=== PATIENT | male | born 1930 | race Caucasian/White ===

== ENCOUNTER → 2016-05-14 | Outpatient (REF) | payer MEDICARE, OTHER ==
[~2016-05-14] MED LIST: AMLO5TAB2 PO; ASPI1TAB PO; ATIV1TAB10 PO; BACITAB3 PO; BENA40TA2 PO; CEFU500T2 PO; CLEO300C2 PO; CLOB0.0548 TOP; CYAN1000VL IM; ESCI20TA PO; FENO145T PO; ISOS30TAB PO; KEFL500C7 PO; LEVA250T PO; LEVO25TA5 PO; LEVO50TA5 PO; LEXA1TAB2 PO; LOSA50TA20 PO; MILKSUS PO; MULTCAP PO; OCUVTAB4 PO; OXYC1SOL PO; OXYC20TA2 PO; PRED20TA PO; RISATAB3 PO; SENN8.6T10 PO; SIMV40TA2 PO; VITA100037 PO; VITA100T20 PO; VITA500055 PO; VITMTA PO; XANA0.5T PO; cefuroxime OR; clobetasol TOP
== END ==
LOC: M LAB REF 16:21
PROVIDERS: ATTEND Nurse Practitioner Adult Health
DX: Z11.1 Encounter for screening for respiratory tuberculosis (principal)

== ENCOUNTER 2016-07-14 12:45 | Observation (INO) | payer MEDICARE, OTHER ==
[~2016-07-14] VITALS: Ht 172.7 cm; Wt 86.8 kg
[~2016-07-14 12:45] MED LIST changes: +BACITAB PO; -BACITAB3 PO; -BENA40TA2 PO; +BENA40TA7 PO; +KEFL500C17 PO; -KEFL500C7 PO; +LEVA1TAB PO; -LEVA250T PO; -OXYC1SOL PO; +OXYC1SOL3 PO; +SENN1TAB10 PO; -SENN8.6T10 PO; -VITA100037 PO; +VITA100067 PO
[2016-07-14 14:11] LABS: BASO % 0.3 % (0.0-1.0); EOS # 0.1 K/mm3 (0.0-0.50); EOS % 1.4 % (0.0-3.0); LARGE UNSTAINED CELL # 0.1 K/mm3 (0.0-0.4); LARGE UNSTAINED CELL % 1.4 % (0.0-4.0); LYMPH # 0.8 K/mm3 (1.5-4.5); LYMPH % 8.8 % (24.0-44.0); MEAN CORPUSCULAR HEMOGLOBIN 30.8 pg (27.0-33.0); MEAN CORPUSCULAR HGB CONC 34.8 g/dl (32.0-36.5); MEAN CORPUSCULAR VOLUME 88.5 fl (80.0-96.0); MONO # 0.6 K/mm3 (0.0-0.8); MONO % 7.5 % (0.0-5.0); NEUTROPHILS % 80.7 % (36.0-66.0); PLATELET COUNT, AUTOMATED 204 k/mm3 (150-450); RED CELL DISTRIBUTION WIDTH 14.1 % (11.5-14.5); WHITE BLOOD COUNT 7.5 K/mm3 (4.0-10.0)
[2016-07-14 14:34] LABS: CALCIUM LEVEL 8.5 MG/DL (8.8-10.2); CREATININE FOR GFR 1.44 MG/DL (0.70-1.30); FREE T4 0.93 NG/DL (0.76-1.46); GLOMERULAR FILTRATION RATE 49.4 (>35); MAGNESIUM LEVEL 2.2 MG/DL (1.8-2.4); POTASSIUM SERUM 4.2 MEQ/L (3.5-5.1)
--- NOTE | 2016-07-14 15:01 | REP ---
CT HEAD WITHOUT CONTRAST: HISTORY: Trauma. COMPARISON: 01/30/2015. Areas of decreased attentuation are present in the periventricular white matter. This represents small vessel ischemic disease. There is no intraparenchymal hemorrhage, mass, or midline shift. The ventricular system and cortical sulci are dilated consistent with mild volume loss. There is no extracerebral collection. There is no fracture. The visualized sinuses are clear. IMPRESSION: 1. Small vessel ischemic disease. 2. Mild volume loss. Signed by Gal Munoz MD 07/14/2016 03:03 P
--- NOTE | 2016-07-14 15:13 | ECGEPIP ---
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
[2016-07-14] MEDS ORDERED: ESCI10TA2 PO (15:17)
[2016-07-14] MEDS ORDERED: ISOS30TAB PO (15:17)
[2016-07-14] MEDS ORDERED: ACET1TAB17 PO (15:17)
[2016-07-14] MEDS ORDERED: SIMV20TA2 PO (15:17)
[2016-07-14] MEDS ORDERED: FENO1TAB PO (15:17)
[2016-07-14] MEDS ORDERED: SENN1TAB10 PO (15:17)
[2016-07-14] MEDS ORDERED: AMLO5TAB2 PO (15:17)
[2016-07-14] MEDS ORDERED: ACETAMINOPHEN TAB 650MG DOSE (2X325MG) PO PRN (16:30)
[2016-07-14] MEDS ORDERED: ALPRAZolam 0.5 MG TAB PO PRN (16:30)
[2016-07-14] MEDS ORDERED: SENNA 8.6 MG TAB (SENOKOT) PO PRN (16:30)
[2016-07-14 17:27] LABS: PERCENT SATURATION 12.1 % (19.7-37.4)
--- NOTE | 2016-07-14 18:20 | REPUSA ---
Clinicaly History: syncope, hypertension. Findings: Real-Time carotid duplex ultrasound with color Doppler flow was performed. Normal color Dop pler flow and arterial waveforms are noted. Moderate diffuse atherosclerotic plaque is seen in the re gion of the carotid bulbs bilaterally. No elevated velocities are seen however. Antegrade blood flow is seen in the vertebral arteries bilaterally. There is no evidence of subclavian steal. The right IC A/CCA ratio measures 1.12, and the left measures 1.37. Incidental note is made of nonocclusive thromb us in the jugular veins bilaterally. Impression: 1. No evidence of hemodynamically significant stenosis in the carotid arterial system bilaterally. Mo derate diffuse atherosclerotic plaque is seen in the region of the carotid bulbs bilaterally. 2. Nonocclusive thrombus in the jugular veins bilaterally is noted.
[2016-07-14] MEDS: NS 1,000 ML IV SCH (19:22)
[2016-07-14 20:00] VITALS: BP 170/75
[2016-07-14] MEDS ORDERED: ALPRAZolam 0.25 MG TAB PO PRN (20:33)
[2016-07-14] MEDS: SIMVASTATIN 20 MG TAB PO SCH (21:08)
[2016-07-14] MEDS: LACTOBACILLUS ACIDOPHILUS CAP (BACID) PO SCH (21:08)
[2016-07-14] MEDS: amLODIPine 5 MG TAB PO SCH (21:09)
[2016-07-14 21:21] VITALS: BP 191/80
--- NOTE | 2016-07-14 21:25 | HPE ---
DATE OF ADMISSION: 07/14/2016 PRIMARY CARE PHYSICIAN: Magaly Grubbs DO ONCOLOGIST: Srinivasan Ozuna MD GENERAL SURGEON: Erlin Hernandez Jr., MD STATUS CODE: DO NOT RESUSCITATE/DO NOT RESUSCITATE. CHIEF COMPLAINT: Syncope. HISTORY OF PRESENT ILLNESS: Mr. Vieyra is an 85-year-old male who was transferred to the emergency room (ER) from [facility] due to an episode of syncope this morning. Patient expressed that this morning after he woke up he went to the bathroom and he had one episode of bowel movement and after the bowel movement, he felt lightheaded and dizzy and then had one episode of syncope. Patient does not remember anything during the episode, however after gaining consciousness patient was alert and he remembers that he crawled toward the bed and then toward his chair. Patient denies tachycardia, palpitation, racing or skipping heartbeat before or during the episode. Patient denies seizure-type activity or losing bowel or bladder control before, during, or after the episode. However, after the episode patient expressed that he remembers that he had upper extremity shaking which according to her daughter he has it secondary to being scared. According to her , patient similar to this episode of syncope every 6 months for the past two years and the last one was in May, when patient was visiting his other daughter in [place], where after taking a shower, patient had a bowel movement and after that patient had syncope. These episodes usually happen in the morning and daughter believes that this is related to his blood pressure medications. Patient also denies nausea, vomiting, diarrhea however sometimes he is constipated. Patient also denies fever, chills , or night sweats. ALLERGIES: No known drug allergies. PAST MEDICAL HISTORY: 1. Colon cancer. 2. Hypothyroidism. 3. Hypercholesterolemia. 4. Coronary artery disease. 5. Orbital fracture. 6. Macular degeneration. 7. Neurogenic bladder, self-catheterization. 8. Sleep apnea. Patient does not want continuous positive airway pressure (CPAP). PAST SURGICAL HISTORY: 1. Coronary artery bypass graft (CABG). 2. Bowel resection. SOCIAL HISTORY: Patient smoked about half a pack a day for 25 years, however patient stopped smoking at age 40. Patient drinks about two beers every day in the evening. Patient denies illicit drug use. Patient has two daughters who are healthy. Patient has no pets. 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 Patient lives at [facility]. FAMILY HISTORY: Patient has two daughters who are healthy. Patient had five brothers, four due to heart diseases. Patient has two sisters, one has breast cancer. Patient's father due to heart attack at age 50. Patient's mother due to diabetes at age 60. REVIEW OF SYSTEMS: GENERAL: Patient denies fever, chills, night sweats, weight loss, weight gain. HEENT: Patient expressed that he had some lightheadedness before episode of syncope, however patient denies headache, acute vision or hearing changes. Patient also denies problem with chewing food or sinusitis. NECK: Patient denies lumps, bumps, or decreased range of motion of his neck. HEART: Patient denies palpitations, racing or skipping heartbeat or chest pain. LUNGS: Patient denies shortness of breath or coughing. ABDOMEN: Patient denies abdominal pain, nausea, vomiting, diarrhea, constipation, melena, hematochezia, or hemoptysis. NEUROLOGIC: Patient denies history of transient ischemic attack (TIA), seizure, or seizure-type activities. PHYSICAL EXAMINATION: VITAL SIGNS: Temperature 96.7, pulse 60, respiratory rate 20, blood pressure 173/83, pulse oximetry 95% on room air. GENERAL APPEARANCE: Patient was lying in bed, in no acute distress. Patient was awake, alert, and oriented to time, place, and person. HEENT: Normocephalic, atraumatic. Pupils are equal and reactive to light. Oral mucous is moist. NECK: Soft, supple. No lymphadenopathy. No thyromegaly. No jugular venous distention (JVD). HEART: Regular rate and rhythm, normal S1, S2. ABDOMEN: Soft, nontender. Positive bowel sounds in all quadrants. Patient has a hernia in the surgical site in the mid abdomen area, which was retractable. LUNGS: Clear breath sounds bilaterally, good air movement. EXTREMITIES: No lower extremity edema. +2 pulses in both lower extremities. No cyanosis in lower extremities. Patient has normal sensation in both upper and lower extremities. Patient has normal range of motion in both upper and lower extremities. NEUROLOGIC: Cranial nerves II-XII intact. No focal deficiencies. LABORATORY DATA: White blood cells 7.5, red blood cells 4.43, hemoglobin 13.6, hematocrit 39.2, MCV 88.5, MCH 30.8, MCHC 34.8, RDW 14.1, platelet count 204, neutrophil percentage 80.7, lymphocyte percentage 8.8, monocyte percentage 7.5, eosinophil percentage 1.4, basophil percentage 0.3, leukocyte percentage 1.4. Sodium 139, potassium 4.2, chloride 104, carbon dioxide 25, anion gap 10, BUN 26 , creatinine 1.44, glomerular filtration rate 49.4, fasting glucose 101, calcium 8.5, magnesium 2.2, total creatine kinase 89, CK-MB 1.2, CK-MB relative index 1.34, troponin less than 0.02, TSH 3.6, free T4 0.93. CT of the head showed small vessel ischemic disease with mild volume loss. ASSESSMENT AND PLAN: 1. Syncope. This is possibly caused by vasovagal secondary to Valsalva (bowel movement) vs medications and dehydration. Based on physical examination, patient is dehydrated. At this time I have started patient on IV fluids. Patient's CT of the head did not show any acute findings. I have ordered orthostatic vital and the result is pending at this time and will repeated every 8 hours. Also we have ordered echocardiogram and carotid ultrasound is pending at this time. Patient does not require to have MRI/MRA at this time. 2. Anemia. This is a chronic issue, however there is no new documentation regarding iron studies, therefore I have ordered iron studies as well as occult blood test and the result is pending at this time. 3. Acute renal failure. This is possibly secondary to dehydration. I have started patient on IV fluids. Also patient was on Cozaar 50 mg by mouth daily, however I have stopped this medication due to acute renal failure. We will continue to monitor renal function. 4. Colon cancer. This is a chronic issue. At this time patient is stable. 5. Hypothyroidism. Patient is on Synthroid 0.05 mg by mouth every morning. 6. Hypercholesterolemia. Will continue patient on Zocor 20 mg by mouth nightly. 7. Coronary artery disease. Patient is on aspirin 81 mg by mouth daily as well as Zocor. The patient is also on isosorbide dinitrate. 8. 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 9. Sleep apnea. Patient has been diagnosed with sleep apnea, however patient refuses continuous positive airway pressure (CPAP). 10. Neurogenic bladder. This is a chronic issue. Patient is using straight catheterization. 11. Macular degeneration. This is a chronic issue. 12. Depression. Patient is on Lexapro 10 mg by mouth daily. 13. Hypertension. At home patient is on Norvasc. At this time we will continue patient on Norvasc and isosorbide. Patient at home is on Cozaar, however I have stopped Cozaar due to acute renal failure. 14. Deep venous thrombosis (DVT) prophylaxis. Patient is on Lovenox 30 mg by mouth daily. My preceptor for this patient encounter was Dr. Annabelle Kaufman. The preceptor was physically present in the building during the encounter and was fully available. As needed, all aspects of the patient interview, examination, medical decision making process, and medical care plan development were reviewed and approved by the preceptor. The preceptor is aware and concurs with the plan as stated in the body of this note and will attest to such by his/her cosignature. AISSATOU
[2016-07-14 21:30] VITALS: BP 184/82
[2016-07-14 22:25] VITALS: BP 168/78
[2016-07-15] VITALS (8 sets, daily range): BP systolic 137–174; BP diastolic 65–80
[2016-07-15] MEDS: LEVOTHYROXINE 0.05 MG TAB (50 MCG) PO SCH (05:28)
[2016-07-15 05:40] LABS: BASO % 0.3 % (0.0-1.0); EOS # 0.1 K/mm3 (0.0-0.50); EOS % 1.3 % (0.0-3.0); LARGE UNSTAINED CELL # 0.1 K/mm3 (0.0-0.4); LARGE UNSTAINED CELL % 1.4 % (0.0-4.0); LYMPH % 9.5 % (24.0-44.0); MEAN CORPUSCULAR HGB CONC 33.7 g/dl (32.0-36.5); MONO # 0.5 K/mm3 (0.0-0.8); NEUTROPHILS # 7.2 K/mm3 (1.8-7.7); NEUTROPHILS % 81.6 % (36.0-66.0); PLATELET COUNT, AUTOMATED 195 k/mm3 (150-450); RED CELL DISTRIBUTION WIDTH 13.9 % (11.5-14.5); WHITE BLOOD COUNT 8.9 K/mm3 (4.0-10.0)
[2016-07-15 05:53] LABS: CALCIUM LEVEL 7.9 MG/DL (8.8-10.2); CREATININE FOR GFR 1.28 MG/DL (0.70-1.30); GLOMERULAR FILTRATION RATE 56.6 (>35); POTASSIUM SERUM 3.7 MEQ/L (3.5-5.1)
[2016-07-15] MEDS: ENOXAPARIN 30 MG/0.3 ML SYR (J1650) SC SCH (08:54)
[2016-07-15] MEDS: MULTIVITAMINS/MINERALS THERAP 1 TAB PO SCH (08:54)
[2016-07-15] MEDS: ASPIRIN 81 MG ENTERIC TAB PO SCH (08:54)
[2016-07-15] MEDS: LACTOBACILLUS ACIDOPHILUS CAP (BACID) PO SCH ×2 (08:54→20:30)
[2016-07-15] MEDS: ESCITALOPRAM OXALATE 10 MG TAB (LEXAPRO) PO SCH (08:54)
[2016-07-15] MEDS: ISOSORBIDE DIN. (ISORDIL) 30 MG TAB PO SCH (08:55)
[2016-07-15] MEDS ORDERED: LOSARTAN 50 MG TAB PO SCH (09:00)
[2016-07-15] MEDS ORDERED: MIRALAX POWDER 255 GM BTL (POLYETHYLENE GLYCOL) PO ONE (11:00)
[2016-07-15] MEDS ORDERED: CALCIUM CARBONATE 500 MG CHEW U/D PO ONE (13:30)
[2016-07-15] MEDS: NS 1,000 ML IV SCH (13:31)
--- NOTE | 2016-07-15 17:13 | IPN ---
DATE: 07/15/2016 SUBJECTIVE: Mr. Vieyra is an 85-year-old male who was seen and examined at the bedside. The patient this morning had one episode of lightheadedness and dizziness while he had a bowel movement. However, the patient did not lose his consciousness or have syncope. On telemetry no acute changes were noticed. The patient denies chest pain, orthopnea, paroxysmal nocturnal dyspnea (PND). The patient also denies nausea, vomiting or loss of consciousness. OBJECTIVE: VITAL SIGNS: Temperature 98, pulse 69, blood pressure 167/74. Pulse oximetry 95 on room air. Total intake from yesterday 200. Total output 250. GENERAL APPEARANCE: The patient was lying in bed, in no acute distress. The patient was awake, alert and oriented to time, place and person. HEENT: Normocephalic, atraumatic. Pupils are equal and reactive to light. Oral mucosa is moist. NECK: Soft, supple. No lymphadenopathy or thyromegaly. No jugular venous distention (JVD). HEART: Regular rate and rhythm. Normal S1, S2. ABDOMEN: Soft, nontender. Positive bowel sounds in all quadrants. LUNGS: Clear breath sounds bilaterally. Good air movement. EXTREMITIES: No lower extremity edema. +2 pulses in both lower extremities. The patient has normal range of motion in both upper and lower extremities. LABORATORY DATA: WBC 8.9, RBC 4.42, hemoglobin 13.2, hematocrit 39.3, MCV 39, MCH 30, MCHC 33.7, RDW 13.9, platelet count 195, neutrophil percentage 81.6, lymphocyte percentage 8.5, monocyte percentage 6, eosinophil percentage 1.3, basophil percentage 0.3, leucocyte percentage 1.4. Sodium 141, potassium 3.7, chloride 106, carbon dioxide 25. Anion gap 10, BUN 26, creatinine 1.28. Glomerular filtration rate 56.6. Fasting glucose 112. Calcium 7.9. ASSESSMENT AND PLAN: 1. Syncope. This is possibly secondary to vasovagal. We have performed orthostatic vitals, however, it was negative. The patient was on IV fluid, however, at this time I have stopped IV fluids. CT of the head did not show any new pathology. Also we have ordered echocardiogram, result is pending. However, carotid ultrasound did not show any obstruction or new pathology. At this time, the patient is stable. We will observe the patient for one more day. If the patient is asymptomatic, the patient can be discharged. 2. Asymptomatic anemia. This is a chronic issue. The patient is status post colorectal surgery due to colorectal cancer. I have ordered iron study which indicated low iron, however, the patient's daughter expressed, due to low absorption, secondary to bowel resection, they do not want any iron supplement. The patient recieving B12 shots every month. Also I have ordered occult blood tests. The results are pending at this time. 3. Acute renal failure. This is possibly secondary to dehydration. However, at this time, the patient's renal function is in normal range. At home the patient was on Cozaar, however, I have stopped this medication. I started the patient yesterday on IV fluid. However, I will hold this IV fluid at this time. 4. Colon cancer. This is a chronic issue. 5. Hypothyroidism. The patient is on 0.05 mg every morning. 6. Hypercholesterolemia. The patient is on Zocor 20 mg by mouth. 7. Coronary artery disease. The patient is on aspirin 81 mg as well as Zocor. The patient also is on isosorbide. 8. 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 9. Sleep apnea. The patient has been diagnosed with sleep apnea, however, the patient refuses continuous positive airway pressure (CPAP). 10. Neurogenic bladder. The patient using a straight catheter. 11. Macular degeneration. This is a chronic issue. 12. Depression. The patient is on Lexapro 10 mg by mouth. 13. Hypertension. The patient is on Norvasc and isosorbide. At home the patient is on Cozaar, however, I have stopped this medication due to acute renal failure. 14. Deep venous thrombosis (DVT) prophylaxis. The patient is on Lovenox. 15. Constipation. I have started the patient on bowel regimen. My preceptor for this patient encounter was Dr. Raheel Wilson. The preceptor was physically present in the building during the encounter and was fully available. As needed, all aspects of the patient interview, examination, medical decision making process, and medical care plan development were reviewed and approved by the preceptor. The preceptor is aware and concurs with the plan as stated in the body of this note and will attest to such by his/her cosignature. Attending Note: I have independently examined this patient and all aspects of the exam and treatment decisions have been discussed with the resident. A member of the hospitalist staff will continue to follow this patient through discharge. AISSATOU
[2016-07-15] MEDS: SIMVASTATIN 20 MG TAB PO SCH (20:30)
[2016-07-15] MEDS: amLODIPine 5 MG TAB PO SCH (20:31)
--- NOTE | 2016-07-15 20:46 | ECHO ---
DATE OF PROCEDURE: 07/15/2016 REFERRING PHYSICIAN: Annabelle Kaufman MD, Raheel Wilson MD INDICATION: Syncope. HEIGHT: 173 cm WEIGHT: 85 kg DIMENSIONS: IVS: 1.6 LV: 3.9 LVPW: 1.6 LA: 4.2 Aorta: 3.2 FINDINGS: The study is of fair technical quality. The patient is in sinus rhythm. Left ventricle is normal size and systolic function with estimated ejection fraction (EF) around 65-70%. Moderate left ventricular hypertrophy is present. Right ventricle is also normal size and systolic function. Left atrium is at least mildly enlarged. Right atrium was poorly seen. Aortic valve is heavily sclerotic, but there is only minimal limitation of cusp mobility. Mitral valve also exhibits mild degenerative abnormalities, but leaflet mobility is preserved. Tricuspid valve is normal. Pulmonic valve was not well seen. No pericardial effusion is noted. Inferior vena cava was not visualized. Aortic root is normal. Aortic arch and abdominal aorta were not seen. Doppler interrogation reveals no significant aortic stenosis or insufficiency. There is trace mitral insufficiency and trace tricuspid insufficiency. Calculated pulmonary artery pressure is within normal limits. Mitral inflow pattern and tissue Doppler imaging of mitral annulus reveal grade 1 diastolic dysfunction. CONCLUSIONS: 1. Study is of fair technical quality. 2. Normal left ventricle (LV) size with moderate left ventricular hypertrophy (LVH) and normal LV systolic function. Grade 1 diastolic dysfunction. 3. Significant aortic sclerosis but no stenosis. 4. Unable to estimate central venous pressure, but probably normal pulmonary artery pressure. COMMENTS: Subacute bacterial endocarditis (SBE) prophylaxis is not recommended. The study does not provide obvious explanation for syncopal event. Overall most consistent with hypertensive heart disease.
[2016-07-16 00:24] VITALS: BP 171/79
[2016-07-16 04:43] VITALS: BP 172/84
[2016-07-16] MEDS: LEVOTHYROXINE 0.05 MG TAB (50 MCG) PO SCH (05:21)
[2016-07-16 05:32] LABS: BASO % 0.3 % (0.0-1.0); EOS # 0.1 K/mm3 (0.0-0.50); EOS % 2.3 % (0.0-3.0); LARGE UNSTAINED CELL # 0.2 K/mm3 (0.0-0.4); LARGE UNSTAINED CELL % 2.9 % (0.0-4.0); LYMPH # 0.9 K/mm3 (1.5-4.5); LYMPH % 17.5 % (24.0-44.0); MEAN CORPUSCULAR HEMOGLOBIN 30.1 pg (27.0-33.0); MEAN CORPUSCULAR HGB CONC 34.1 g/dl (32.0-36.5); MEAN CORPUSCULAR VOLUME 88.4 fl (80.0-96.0); MONO # 0.4 K/mm3 (0.0-0.8); MONO % 7.5 % (0.0-5.0); NEUTROPHILS # 3.6 K/mm3 (1.8-7.7); NEUTROPHILS % 69.6 % (36.0-66.0); PLATELET COUNT, AUTOMATED 209 k/mm3 (150-450); RED CELL DISTRIBUTION WIDTH 13.6 % (11.5-14.5); WHITE BLOOD COUNT 5.2 K/mm3 (4.0-10.0)
[2016-07-16 05:46] LABS: CALCIUM LEVEL 8.6 MG/DL (8.8-10.2); CREATININE FOR GFR 1.22 MG/DL (0.70-1.30); GLOMERULAR FILTRATION RATE 59.8 (>35); POTASSIUM SERUM 3.7 MEQ/L (3.5-5.1)
[2016-07-16 08:00] VITALS: BP 140/66
[2016-07-16] MEDS: LACTOBACILLUS ACIDOPHILUS CAP (BACID) PO SCH (08:55)
[2016-07-16] MEDS: ENOXAPARIN 30 MG/0.3 ML SYR (J1650) SC SCH (08:55)
[2016-07-16 08:56] VITALS: BP 140/66
[2016-07-16] MEDS: ESCITALOPRAM OXALATE 10 MG TAB (LEXAPRO) PO SCH (08:56)
[2016-07-16] MEDS: ISOSORBIDE DIN. (ISORDIL) 30 MG TAB PO SCH (08:56)
[2016-07-16] MEDS: ASPIRIN 81 MG ENTERIC TAB PO SCH (08:56)
[2016-07-16] MEDS: MULTIVITAMINS/MINERALS THERAP 1 TAB PO SCH (08:56)
[2016-07-16] MEDS ORDERED: LOSARTAN 50 MG TAB PO SCH (09:00)
[2016-07-16] MEDS ORDERED: MIRA3350 PO ×2 (09:24→12:09)
--- NOTE | 2016-07-20 07:04 | DSES ---
DATE OF ADMISSION: 07/14/2016 DATE OF DISCHARGE: 07/16/2016 PRIMARY CARE PHYSICIAN: Magaly Jain DO GENERAL SURGEON: Erlin Hernandez Jr., MD ONCOLOGIST: Srinivasan Ozuna MD CONSULTANTS: None. PROCEDURES: None. PRIMARY DIAGNOSIS: Syncope. SECONDARY DIAGNOSES: 1. Colon cancer. 2. Hypothyroidism. 3. Hypercholesterolemia. 4. Coronary artery disease. 5. Orbital fracture. 6. Macular degeneration. 7. Neurogenic bladder. 8. Sleep apnea. 9. Anemia. 10. Depression. DISCHARGE MEDICATIONS: - MiraLAX 17 grams by mouth daily as needed constipation - acetaminophen 650 mg by mouth every 4 hours as needed pain - Xanax 0.5 mg by mouth twice a day as needed anxiety - amlodipine 5 mg by mouth every evening - aspirin 81 mg by mouth daily - vitamin D3 5000 units by mouth daily - escitalopram oxylate 10 mg by mouth daily - fenofibrate 120 mg by mouth every two days - isosorbide dinitrate 30 mg by mouth daily - Bacid two tablets by mouth twice a day - Synthroid 50 mcg by mouth every morning - losartan potassium 50 mg by mouth daily - multivitamin one tablet by mouth daily - senna one tablet by mouth daily as needed constipation - simvastatin 20 mg by mouth at bedtime HOSPITAL COURSE: Mr. Vieyra presented to emergency room of [facility]. Patient was transferred from [place] due to an episode of syncope. The patient had these episodes before for the past two years, which was possibly caused by vasovagal secondary to Valsalva secondary to bowel movement versus medication and dehydration. CT of the head did not show any new pathology. The patient was started on IV fluids. Also, we checked orthostatic vitals every 8 hours. Also we ordered an echocardiogram and carotid ultrasound. Carotid ultrasound was negative. Echocardiogram indicated normal left ventricle size with moderate left ventricle hypertrophy and grade 1 diastolic dysfunction. During the hospitalization, the patient had one episode of lightheadedness during the bowel movement and was mildly constipated. Therefore, the patient was started on MiraLAX, however the patient did not have any episodes of syncope present. The patient also has asymptomatic anemia, which is a chronic issues. The patient is status post colorectal surgery due to colorectal cancer. We have offered iron supplement since the iron study indicated low iron levels, however the patient and his daughter refused due to low absorption secondary to bowel resection. Patient is receiving B12 shots every months. At the time of discharge, the patient was medically stable and medically optimized. DISCHARGE PLACEMENT: [facility]. ACTIVITY: As tolerated by patient. FOLLOWUP: Please followup with your primary care. My preceptor for this patient encounter was Dr. Raheel Wilson. The preceptor was physically present in the building during the encounter and was fully available. As needed, all aspects of the patient interview, examination, medical decision making process, and medical care plan development were reviewed and approved by the preceptor. The preceptor is aware and concurs with the plan as stated in the body of this note and will attest to such by his/her cosignature. Attending Note: I have independently examined this patient and all aspects of the exam and treatment decisions have been discussed with the resident. A member of the hospitalist staff will continue to follow this patient through discharge. AISSATOU
[2016-07-21] MEDS ORDERED: CIPR-249 PO ×2 (02:16→05:12)
[2016-12-27] MEDS ORDERED: BUSP5TA PO (20:26)
== END 2016-07-16 12:23 ==
LOC: M ED 15:10 → M ED INP 16:17 → M PCU 21:32
PROVIDERS: ADMIT Internal Medicine Nephrology; ATTEND Hospitalist
DX: R55 Syncope and collapse (principal); Z85.038 Personal history of other malignant neoplasm of large intestine; E03.9 Hypothyroidism, unspecified; E78.00 Pure hypercholesterolemia, unspecified; I25.10 Atherosclerotic heart disease of native coronary artery without angina pectoris; Z87.81 Personal history of (healed) traumatic fracture; H35.30 Unspecified macular degeneration; N31.9 Neuromuscular dysfunction of bladder, unspecified; G47.30 Sleep apnea, unspecified; D64.9 Anemia, unspecified; F32.9 Major depressive disorder, single episode, unspecified; I67.82 Cerebral ischemia; I70.0 Atherosclerosis of aorta; K59.00 Constipation, unspecified; I10 Essential (primary) hypertension; N17.9 Acute kidney failure, unspecified; Z79.899 Other long term (current) drug therapy; Z79.82 Long term (current) use of aspirin; Z95.1 Presence of aortocoronary bypass graft; Z87.891 Personal history of nicotine dependence
CPT/HCPCS: 36415; 70450; 80048; 82550; 82553; 82728; 83550; 83735; 84439; 84443; 84484; 85025; 93005; 93041; 93306; 93880; 94760; 96360; 96361; 96372; 97161; 99285; G0378; G8978; G8979; G8980; J1650

== ENCOUNTER 2016-07-20 23:14 | Emergency (ER) | payer MEDICARE, OTHER ==
[~2016-07-20 23:14] MED LIST changes: +ACET-654 PO; -BACITAB PO; +BACITAB3 PO; +BENA40TA2 PO; -BENA40TA7 PO; +ESCI10TA2 PO; +FENO1TAB PO; -KEFL500C17 PO; +KEFL500C7 PO; -LEVA1TAB PO; +LEVA250T PO; +MIRA3350 PO; +OXYC1SOL PO; -OXYC1SOL3 PO; -SENN1TAB10 PO; +SENN8.6T10 PO; +SIMV20TA2 PO; +VITA100037 PO; -VITA100067 PO
[2016-07-20] MEDS ORDERED: COZA50TA PO (23:31)
[2016-07-20] MEDS ORDERED: ONDANSETRON 4MG/2ML VIAL (J2405) IV ONE (23:45)
[2016-07-21 00:13] LABS: BASO % 0.4 % (0.0-1.0); EOS # 0.2 K/mm3 (0.0-0.50); EOS % 3.7 % (0.0-3.0); LARGE UNSTAINED CELL # 0.1 K/mm3 (0.0-0.4); LARGE UNSTAINED CELL % 1.9 % (0.0-4.0); LYMPH # 0.9 K/mm3 (1.5-4.5); LYMPH % 16.6 % (24.0-44.0); MEAN CORPUSCULAR HGB CONC 33.8 g/dl (32.0-36.5); MEAN CORPUSCULAR VOLUME 88.8 fl (80.0-96.0); MONO # 0.5 K/mm3 (0.0-0.8); MONO % 8.3 % (0.0-5.0); NEUTROPHILS # 3.8 K/mm3 (1.8-7.7); NEUTROPHILS % 69.2 % (36.0-66.0); PLATELET COUNT, AUTOMATED 249 k/mm3 (150-450); RED CELL DISTRIBUTION WIDTH 13.4 % (11.5-14.5); WHITE BLOOD COUNT 5.5 K/mm3 (4.0-10.0)
[2016-07-21 00:45] LABS: ALBUMIN 3.5 GM/DL (3.2-5.2); ALKALINE PHOSPHATASE 51 U/L (45-117); ALT/SGPT 32 U/L (12-78); ANION GAP 9 MEQ/L (8-16); AST/SGOT 27 U/L (15-37); BILIRUBIN,DIRECT < 0.1 MG/DL (0.0-0.2); BILIRUBIN,TOTAL 0.3 MG/DL (0.2-1.0); BLOOD UREA NITROGEN 20 MG/DL (7-18); CALCIUM LEVEL 8.7 MG/DL (8.8-10.2); CARBON DIOXIDE LEVEL 24 MEQ/L (21-32); CHLORIDE LEVEL 104 MEQ/L (98-107); CREATININE FOR GFR 1.19 MG/DL (0.70-1.30); GLOMERULAR FILTRATION RATE > 60.0 (>35); GLUCOSE, FASTING 98 MG/DL (83-110); POTASSIUM SERUM 4.4 MEQ/L (3.5-5.1); SODIUM LEVEL 137 MEQ/L (136-145)
[2016-07-21] MEDS ORDERED: ISOVUE-370 76% 100ML VIAL (Q9967) As Ordered ONE (00:47)
--- NOTE | 2016-07-21 02:00 | REPUSA ---
CLINICAL HISTORY: Abdominal pain. TECHNIQUE: Multiple axial, sagittal and coronal CT images were obtained through the abdomen and pelvi s after administration of oral and intravenous contrast material. Images were obtained before and aft er IV contrast administration. COMMENTS: Scattered hepatic cysts. The liver is mildly enlarged with decreased attenuation without mass or defect. There is no intra or extrahepatic biliary ductal dilatation. Calcified splenic granulomas. The gallbladder contains a gall stone is. The pancreas is of normal contour and attenuation characteristics. There is no evidence of adrenal mass. Multiple left renal simple cysts. Both kidneys demonstrate prompt and equal nephrograms. The kidneys are normal in size, shape and conf iguration. There is no evidence of renal or ureteral mass. No renal or ureteral calculi are identifie d. There is no hydroureter or hydronephrosis. No evidence for appendicitis. There is sigmoid thickening. Sigmoid diverticulosis is noted. No evide nce for small or large bowel obstruction. There is no evidence of intrinsic or extrinsic bladder mass. There is small amount of free pelvic flu id. Chronic deformity of the right inferior pubic ramus. Images of the lung bases show no evidence of pleural or parenchymal mass. There are no pleural effusi ons. The bony structures are free of lytic or blastic lesions. Multilevel degenerative changes are seen in volving the thoracolumbar spine. Scattered calcifications are seen involving the aorta and major bran ches compatible with atherosclerosis. Bilateral fat containing inguinal hernias without incarceration. IMPRESSION: Acute sigmoid diverticulitis. No perforation or abscess formation. Small amount of free fluid in the pelvis. Hepatomegaly fatty liver infiltration. Cholelithiasis. Thank you for your kind referral of this patient.
[2016-07-21] MEDS ORDERED: CIPROFLOXACIN 400 MG in APPROPRIATE DILUENT 1 EA IV ONE (02:15)
[2016-07-21] MEDS ORDERED: metroNIDAZOLE 500 MG in APPROPRIATE DILUENT 1 EA IV ONE (02:15)
[2016-07-21] MEDS ORDERED: FLAG500T PO ×2 (02:16→05:12)
[2016-07-21] MEDS ORDERED: CIPR500T89 PO ×2 (02:16→05:12)
[2016-07-21 05:23] VITALS: BP 158/76
--- NOTE | 2016-07-21 07:50 | REP ---
Clinical: Altered mental status. Comparison: 08/06/2015. Findings: Mild cardiomegaly cannot be excluded. Trace linear fibroatelectatic changes in the bilateral mid lung zones may represent acute versus chronic scarring. No focal consolidation, effusion, or pneumothorax. Skeletal structures intact. Evidence for prior sternotomy. Impression: Bilateral linear fibroatelectatic change. No focal consolidation or effusion appreciated. Signed by Sudhakar Varela MD 07/21/2016 07:42 A
--- NOTE | 2016-07-22 07:17 | ECGEPIP ---
Stationary ECG Study 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
== END 2016-07-21 05:23 | disposition home or self-care (01) ==
LOC: EDBD 23:14 → M ED 23:14
DX: R10.9 Unspecified abdominal pain (principal); K57.32 Diverticulitis of large intestine without perforation or abscess without bleeding; I11.0 Hypertensive heart disease with heart failure; R33.9 Retention of urine, unspecified; E78.00 Pure hypercholesterolemia, unspecified; F03.90 Unspecified dementia, unspecified severity, without behavioral disturbance, psychotic disturbance, mood disturbance, and anxiety; N31.9 Neuromuscular dysfunction of bladder, unspecified; Z85.038 Personal history of other malignant neoplasm of large intestine; Z79.899 Other long term (current) drug therapy; Z79.82 Long term (current) use of aspirin
CPT/HCPCS: 51701; 71010; 74177; 80048; 80076; 81001; 82140; 83605; 83690; 84443; 85025; 87040; 87088; 87186; 93005; 93041; 94760; 96365; 96367; 96375; 99285; G0480; J0744; J2405; Q9967

== ENCOUNTER → 2016-08-05 | Outpatient (REF) | payer MEDICARE, OTHER ==
[~2016-08-05] MED LIST changes: +CIPR500T89 PO; +COZA50TA PO; +FLAG500T PO
[2016-08-05 11:14] LABS: FREE T4 1.06 NG/DL (0.76-1.46)
[2016-08-05 11:52] LABS: VITAMIN B12 LEVEL 634 PG/ML (247-911)
[2016-08-05 11:53] LABS: FOLATE > 24.0 NG/ML (>5.4)
== END ==
PROVIDERS: ATTEND Nurse Practitioner Family
DX: R55 Syncope and collapse (principal); R41.81 Age-related cognitive decline; I12.9 Hypertensive chronic kidney disease with stage 1 through stage 4 chronic kidney disease, or unspecified chronic kidney disease

== ENCOUNTER 2016-08-12 21:05 | Emergency (ER) | payer MEDICARE, OTHER ==
[~2016-08-12] VITALS: Ht 170.2 cm; Wt 86.0 kg
[~2016-08-12 21:05] MED LIST changes: -ACET-654 PO; +ACET1TAB17 PO; +BACITAB PO; -BACITAB3 PO; -BENA40TA2 PO; +BENA40TA7 PO; +CIPR-249 PO; -CIPR500T89 PO; +KEFL500C17 PO; -KEFL500C7 PO; +LEVA1TAB PO; -LEVA250T PO; -OXYC1SOL PO; +OXYC1SOL3 PO; +SENN1TAB10 PO; -SENN8.6T10 PO; -VITA100037 PO; +VITA100067 PO
[2016-08-12 22:40] LABS: ANION GAP 7 MEQ/L (8-16); BLOOD UREA NITROGEN 25 MG/DL (7-18); CALCIUM LEVEL 8.8 MG/DL (8.8-10.2); CARBON DIOXIDE LEVEL 25 MEQ/L (21-32); CHLORIDE LEVEL 105 MEQ/L (98-107); CREATININE FOR GFR 1.46 MG/DL (0.70-1.30); GLOMERULAR FILTRATION RATE 48.6 (>35); GLUCOSE, FASTING 99 MG/DL (83-110); SODIUM LEVEL 137 MEQ/L (136-145)
--- NOTE | 2016-08-12 23:10 | REPUSA ---
CT of the head Clinical history: trauma. Protocol: Multiple axial CT images obtained with 5 mm slice thickness were obtained through the head without administration of contrast. Comparison: 07/14/2016. Findings: The ventricles and sulci are symmetric but prominent in size bilaterally. There are periven tricular areas of low attenuation throughout the deep white matter. There is no evidence of acute hem orrhage or infarct. There is no midline shift, mass effect, or extra-axial fluid collection. The osse ous structures are unremarkable. The visualized paranasal sinuses and mastoid air cells are clear. Impression: No acute hemorrhage or infarct. Findings are consistent with mild age-related atrophy and chronic small vessel ischemic disease.
[2016-08-13 01:20] VITALS: BP 180/77
[2016-12-27] MEDS ORDERED: BUSP5TA PO (20:26)
== END 2016-08-13 01:26 | disposition home or self-care (01) ==
LOC: EDSEX 21:05 → EDBD 21:05 → M ED 22:25
DX: Z04.8 Encounter for examination and observation for other specified reasons (principal); W19.XXXA Unspecified fall, initial encounter; Y92.129 Unspecified place in nursing home as the place of occurrence of the external cause; Y93.89 Activity, other specified; Y99.8 Other external cause status; I67.82 Cerebral ischemia; F03.90 Unspecified dementia, unspecified severity, without behavioral disturbance, psychotic disturbance, mood disturbance, and anxiety; I10 Essential (primary) hypertension; I25.10 Atherosclerotic heart disease of native coronary artery without angina pectoris; F41.9 Anxiety disorder, unspecified; Z87.891 Personal history of nicotine dependence; Z79.899 Other long term (current) drug therapy
CPT/HCPCS: 36415; 70450; 80048; 99284; G0480

== ENCOUNTER 2016-09-08 06:56 | Inpatient (IN) | payer MEDICARE, OTHER ==
[~2016-09-08] VITALS: Ht 167.6 cm; Wt 87.2 kg
[2016-09-08] MEDS ORDERED: NS 500 ML IV ONE (07:15)
--- NOTE | 2016-09-08 07:29 | ECGEPIP ---
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
[2016-09-08 07:32] LABS: BASO # 0.1 K/mm3 (0.0-0.2); BASO % 0.3 % (0.0-1.0); EOS # 0.2 K/mm3 (0.0-0.50); EOS % 0.9 % (0.0-3.0); LARGE UNSTAINED CELL # 0.1 K/mm3 (0.0-0.4); LARGE UNSTAINED CELL % 0.4 % (0.0-4.0); LYMPH # 0.5 K/mm3 (1.5-4.5); LYMPH % 1.7 % (24.0-44.0); MEAN CORPUSCULAR HGB CONC 33.5 g/dl (32.0-36.5); MEAN CORPUSCULAR VOLUME 89.5 fl (80.0-96.0); MONO # 0.6 K/mm3 (0.0-0.8); MONO % 2.4 % (0.0-5.0); NEUTROPHILS # 24.8 K/mm3 (1.8-7.7); NEUTROPHILS % 94.3 % (36.0-66.0); PLATELET COUNT, AUTOMATED 267 k/mm3 (150-450); RED CELL DISTRIBUTION WIDTH 13.6 % (11.5-14.5); WHITE BLOOD COUNT 26.3 K/mm3 (4.0-10.0)
[2016-09-08 07:57] LABS: ALBUMIN 3.6 GM/DL (3.2-5.2); ALBUMIN/GLOBULIN RATIO 1.16 (1.00-1.93); ALKALINE PHOSPHATASE 50 U/L (45-117); ALT/SGPT 20 U/L (12-78); ANION GAP 11 MEQ/L (8-16); AST/SGOT 16 U/L (15-37); BILIRUBIN,DIRECT < 0.1 MG/DL (0.0-0.2); BILIRUBIN,TOTAL 0.4 MG/DL (0.2-1.0); BLOOD UREA NITROGEN 23 MG/DL (7-18); CALCIUM LEVEL 8.7 MG/DL (8.8-10.2); CARBON DIOXIDE LEVEL 23 MEQ/L (21-32); CHLORIDE LEVEL 106 MEQ/L (98-107); GLUCOSE, FASTING 133 MG/DL (83-110); SODIUM LEVEL 140 MEQ/L (136-145); TOTAL PROTEIN 6.7 GM/DL (6.4-8.2)
[2016-09-08] MEDS: NS 1,000 ML IV SCH ×3 (08:00→15:49)
[2016-09-08] MEDS ORDERED: FLOM5CAP PO (08:03)
[2016-09-08] MEDS ORDERED: DONETAB6 PO (08:03)
[2016-09-08] MEDS ORDERED: MAALSUS2 PO (08:03)
--- NOTE | 2016-09-08 08:05 | REP ---
Chest x-ray: Two views. History: "DB" Comparison study: July 21, 2016. Findings: The patient is status post prior median sternotomy. The lungs are symmetrically aerated and free of infiltrate. There are granulomatous lymph node calcifications in the mediastinum projected on the lateral radiograph. Heart is not felt to be enlarged. Pleural angles are sharp. Pulmonary vasculature is not increased. The aorta is calcific and a little tortuous. No infiltrate is seen. Impression: No active disease. Signed by Rodriguez Gordon MD 09/08/2016 07:57 A
--- NOTE | 2016-09-08 11:05 | REP ---
CT of the chest without IV contrast: Comparison is 10/27/2015. There is discoid atelectasis/scarring in the right middle lobe and in the lingular segment of the left upper lobe, unchanged from the comparison study. There are no acute infiltrates or effusions. No masses are identified. There is a left upper lobe calcified granuloma, unchanged. There are right lower lobe calcified granulomas, unchanged. There are calcified hilar nodes bilaterally. Calcified mediastinal subcarinal and aorticopulmonic window nodes compatible with old healed granulomatous disease. On the comparison study there was a soft tissue nodule in the anterior chest wall on the left at the level of the left clavicular head. This nodule is no longer present on the study today. There is no axillary lymphadenopathy. The unenhanced thoracic aorta is unremarkable except for calcified atheroma. Cardiac size is normal. There is calcified atheroma in the coronary arteries. The visualized upper abdominal contents demonstrate multiple tiny gallbladder calculi. These are unchanged. There is a cyst in the dome of the liver, unchanged. There is no biliary duct dilatation. The pancreas is unremarkable. There are numerous splenic calcified granulomas. These are unchanged. There is no adrenal mass. Impression: There is no acute infiltrate or effusion. There is chronic discoid atelectasis/scarring in the right middle lobe and lingular segment of the left upper lobe. There are calcified granulomas in the lungs, christy, mediastinum and spleen as described. Cholelithiasis, unchanged. Hepatic cyst, unchanged. Signed by Samuel Perdue MD 09/08/2016 10:56 A
--- NOTE | 2016-09-08 11:35 | REP ---
CT abdomen pelvis without IV or bowel contrast: Comparisons 04/02/2014. Study is performed in conjunction with the CT of the chest without IV contrast performed the same time is as CT of the abdomen and pelvis. The unenhanced hepatic parenchyma again demonstrates a cyst in the dome of the liver, unchanged. The unenhanced hepatic parenchyma is otherwise homogeneous. There are a few tiny hepatic calcified granulomas. There are tiny gallbladder calculi, unchanged. There is no biliary duct dilatation. The pancreas is unremarkable. There are numerous splenic calcified granulomas. This is unchanged. The adrenals are unremarkable and unchanged. There are left renal cortical cysts, unchanged. There is calcified vascular atheroma in the renal arteries. There is no hydronephrosis. The abdominal aorta is unremarkable except for calcified atheroma. There is no retroperitoneal adenopathy or mass. There is no bowel distension or obstruction. There is no pneumoperitoneum. There is no ascites. Pelvis: There is a circumferential surgical staple line in the proximal ascending colon compatible with partial colectomy. The appendix is not identified. There are a few diverticula in the ascending colon. There are multiple diverticula in the descending colon and sigmoid colon. However, there is no pericolonic inflammation or abscess to suggest diverticulitis. There is no ascites. The bladder is unremarkable. There is no pelvic adenopathy. Impression: Cholelithiasis without biliary duct dilatation. Hepatic cyst. Calcified granulomas in the liver and spleen. Left renal cysts. Evidence for surgery of the ascending colon, probable partial colectomy. Diverticulosis without diverticulitis. No ascites or adenopathy. No hydronephrosis. Signed by Samuel Perdue MD 09/08/2016 11:27 A
[2016-09-08] MEDS ORDERED: ACETAMINOPHEN TAB 650MG DOSE (2X325MG) PO ONE (12:00)
[2016-09-08] MEDS ORDERED: MIRA33504 PO ×2 (12:01)
[2016-09-08] MEDS ORDERED: CIPROFLOXACIN 400 MG in APPROPRIATE DILUENT 1 EA IV ONE (12:15)
[2016-09-08] MEDS ORDERED: BISACODYL 5 MG TAB PO PRN (14:30)
[2016-09-08] MEDS ORDERED: MIRALAX *UNIT DOSE* 17GM PACKET PO PRN (14:30)
[2016-09-08] MEDS ORDERED: ACETAMINOPHEN TAB 650MG DOSE (2X325MG) PO PRN (14:30)
[2016-09-08] MEDS ORDERED: ALPRAZolam 0.25 MG TAB PO PRN (14:30)
[2016-09-08] MEDS ORDERED: PERCOCET 5MG/325MG TAB PO PRN (14:30)
[2016-09-08] MEDS ORDERED: ONDANSETRON 4MG/2ML VIAL (J2405) IV PRN (14:30)
[2016-09-08] MEDS ORDERED: SENNA 8.6 MG TAB (SENOKOT) PO PRN (14:30)
[2016-09-08] MEDS ORDERED: amLODIPine 5 MG TAB PO ONE (14:45)
[2016-09-08 15:00] VITALS: BP 160/74
[2016-09-08] MEDS: MULTIVITAMINS/MINERALS THERAP 1 TAB PO SCH (15:46)
[2016-09-08] MEDS: CIPROFLOXACIN 400 MG in APPROPRIATE DILUENT 1 EA IV SCH (15:47)
[2016-09-08] MEDS: LEVOTHYROXINE 50MCG TABLET (0.05MG) PO SCH (15:47)
[2016-09-08] MEDS: ESCITALOPRAM OXALATE 10 MG TAB (LEXAPRO) PO SCH (15:47)
[2016-09-08] MEDS: ISOSORBIDE DIN. (ISORDIL) 30 MG TAB PO SCH (15:47)
[2016-09-08] MEDS: ASPIRIN 81 MG ENTERIC TAB PO SCH (15:47)
[2016-09-08] MEDS: HEPARIN SOD (PORCINE) 5000 UNITS/ML VIAL SC SCH ×2 (15:48→21:25)
--- NOTE | 2016-09-08 17:11 | HPE ---
DATE OF ADMISSION: 09/08/2016 PRIMARY CARE PHYSICIAN: Dr. Magaly Grubbs ONCOLOGIST: Dr. Srinivasan Ozuna GENERAL SURGEON: Dr. Erlin Hernandez CHIEF COMPLAINT: Abdominal pain. HISTORY OF THE PRESENT ILLNESS: Mr. Vieyra is an 85-year-old male who was transferred to the emergency department (ED) from [facility] due to abdominal pain. The patient was accompanied by her daughter who expressed that on 08/22/2016 patient noticing abdominal pain and patient's aide requested the patient to be transferred to the hospital due to the past medical history of colon cancer. Also, it was reported that the patient became out of breath; however, according to the daughter, this is secondary to being anxious due to pain and this is a chronic issue for the patient. The patient has underlying dementia and becomes very agitated when he has pain and cannot understand comprehend the situation. At the emergency room, (ER), the patient received 500 normal saline bolus as well as one dose of acetaminophen 650 mg, and it was found that the patient has elevated blood pressure (193/81) with a normal heart rate (78). Therefore, we administered one dose of amlodipine at home dosage (5 mg). The patient has chronic constipation and was started on MiraLAX on the previous hospitalization. According to the daughter, the patient had received MiraLAX on Thursday; however, the patient did not have any bowel movement until this morning at the hospital when he had one episode of bowel movement. Daughter expressed that she noticed the patient became more painful and agitated with bowel movement and the patient had expressed that bowel movement has increased his rectal pain. The patient also expressed that the abdominal pain was gone and mostly is a radiating pain to his rectum. The patient also has a history of neurogenic bladder, and he self-catheterizes himself. However, the patient denies having any discomfort or pain with self-catheterization. However, according to the daughter, since the patient has dementia, the patient cannot accurately provide the pain history. The patient did not have fever, chills or night sweats. However, the patient expressed that the rectal pain and discomfort had started about a month ago and has been increased. ALLERGIES: No known allergies. PAST MEDICAL HISTORY: 1. Syncope. 2. Colon cancer. 3. Hypothyroidism. 4. Hypercholesterolemia. 5. Coronary artery disease. 6. Orbital fracture. 7. Macular degeneration. 8. Neurogenic bladder, self catheterizing. 9. Sleep apnea. The patient does not want continuous positive airway pressure (CPAP0. PAST SURGICAL HISTORY: 1. Coronary artery bypass graft (CABG). 2. Bowel resection. HOME MEDICATION: - acetaminophen 650 mg by mouth every 4 hours as needed for pain - Xanax 0.5 mg by mouth twice a day as needed for anxiety - amlodipine 5 mg by mouth nightly - aspirin 81 mg by mouth daily - calcium D3 5000 units by mouth daily - donepezil 10 mg by mouth nightly - escitalopram 10 mg by mouth daily - fenofibrate 120 mg by mouth every other day (q2d) - isosorbide dinitrate 30 mg by mouth daily - Bacid twice a day - Synthroid 50 mcg by mouth every morning - Cozaar 50 mg by mouth daily - Maalox 15 mL by mouth three times a day as needed for indigestion - multivitamin one tablet by mouth daily - MiraLAX 17 grams by mouth daily as needed for constipation - MiraLAX 17 grams by mouth two times per week Thursday and Thursday - Senna Lax one tablet by mouth daily as needed for constipation - simvastatin 20 mg by mouth nightly - Flomax 0.4 mg by mouth nightly SOCIAL HISTORY: The patient smoked about half a pack a day for 25 years; however , the patient stopped smoking at age 40. The patient drinks about two beers every day in the evening. The patient denies illicit drug use. The patient has two daughters who are healthy. 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 The patient lives at [facility]. FAMILY HISTORY: The patient has two daughters who are healthy. The patient has five brothers, four due to heart disease and the patient has two sisters, one breast cancer. The patient's father due to heart disease at age 50. The patient's mother due to diabetes at age 60. REVIEW OF SYSTEMS: General: The patient denies fever, chills, night sweats, weight loss, weight gain. HEENT: The patient denies acute vision or hearing changes. The patient also denies lightheadedness, dizziness, problems with chewing food or sinusitis. Neck: The patient denies lumps, bumps, or decreased range of motion of his neck. Heart: The patient denies chest pain, palpitations, racing or skipping heartbeat. Lungs: The patient denies shortness of breath. The patient had one episode of shortness of breath during the episode of abdominal pain this morning. However, that was secondary to being anxious. The patient denies coughing or shortness of breath at this moment. Abdomen: The patient had one episode of abdominal pain this morning in the mid lower abdomen with radiation to the rectum for 07/02; however, at this time, the patient expressed that abdominal pain has gone. The patient denies nausea, vomiting, constipation, melena, hematochezia, hemoptysis. Neurologic: The patient had a history of syncope; however, the patient denies a history of transient ischemic attack (TIA) or seizure-type activities. PHYSICAL EXAMINATION: Vital signs: Temperature 98.6, pulse 78, respiratory rate 18, blood pressure 193/81, pulse oximetry 84% on room air. General Appearance: The patient was sitting in a chair in no acute distress. The patient was awake, alert and oriented to person but not to place or time. This is secondary to dementia. HEENT: Normocephalic, atraumatic. Pupils are equal and reactive to light. Oral mucosa is moist. Neck: Soft, supple. No lymphadenopathy. No thyromegaly. No jugular venous distention (JVD). Heart: Regular rate and rhythm. Normal S1, S2. Lungs: Clear breath sounds bilaterally. Good air movement. Abdomen: Soft, nontender. Positive bowel sounds in all quadrants. The patient has a hernia in the surgical site of the abdominal area. No pain with palpation and it is appreciated Rectal Exam: Based on the report, prostate is not extended; however, there is tenderness to palpation. Also, there was mild erythema around the rectum area. No bleeding or abnormal discharge was noted. Extremities: No lower extremity edema. +2 pulses in both lower extremities. The patient has normal range of motion both upper and lower extremities as well as strength in both upper and lower extremities (5/5). Neurologic: Cranial nerves II-XII is intact. No focal deficiencies. LABORATORY DATA: White blood cells 26.3, red blood cells 4.45, hemoglobin 13.3, hematocrit 39.8, MCV 89.5, MCH 30, MCHC 33.5, RDW 13.6, platelet count 267, neutrophil percentage 94.3, lymphocyte percentage 1.7, monocyte percentage 2.4, eosinophil percentage 0.9, basophil percentage 0.3, leukocyte percentage 0.4. Sodium 140, potassium 4, chloride 106, carbon dioxide 23, anion gap 11, BUN 23, creatinine 1.4, glomerular filtration rate 51, fasting glucose 133, lactic acid 2, calcium 8.7, total bilirubin 0.4, direct bilirubin less than 0.1, AST 16, ALT 20, alkaline phosphatase 50, total protein 6.7, albumin 3.6, lipase 118, TSH 2.47. UA: Urine color yellow, urine appearance hazy, urine pH 6, urine specific gravity 1.011, urine protein 1+, urine glucose negative, urine ketones negatives , urine blood 1+, urine nitrite negative, urine bilirubin negative, urine urobilinogen 0.2, urine leukocyte esterase 1+, urine white blood cells 17, urine red blood cells 3, urine hyaline casts 0, urine bacteria 1+, urine squamous epithelial cells 0. Bone conduction is pending. Urine culture is pending. IMAGING TECHNIQUES: CT abdomen and pelvis without contrast which indicated cholelithiasis without biliary duct dilation, hepatic cyst, calcified granulomas in the liver and the spleen, left renal cysts, evidence for the surgery of the ascending colon from a partial colectomy, diverticulosis without diverticulitis. No ascites or adenopathy. No hydronephrosis. Chest CT which indicated no acute infiltration or effusion. There is chronic discoid atelectasis, scarring in the right middle lobe and lingular segment of the left upper lobe. There are calcified granulomas in the lungs, christy, mediastinum and spleen. Cholelithiasis, unchanged. Hepatic cyst, unchanged. Chest x-ray which shows no active disease. ASSESSMENT AND PLAN: 1. Hypertensive urgency. This could be secondary to anxiety versus infection. At this time, we have given one dose of lisinopril (5 mg). We will continue monitoring the patient's blood pressure. At this time, the patient is stable. 2. Prostatitis. UA indicating possibility of infection. However, urine culture is pending. Based on the previous cultures, the patient has been infected with Enterococcus faecalis and Klebsiella pneumoniae. At this point, we have started the patient on Cipro, and we will continue monitoring the patient for any abnormal symptoms. 3. Leukocytosis. This is possibly secondary to infection (prostatitis). Blood culture is pending, as well as urine culture. The patient is on intravenous (IV) antibiotic. We will continue monitoring the patient's white blood cells. 4. Symptomatic anemia. This is a chronic issue. The patient is status post colorectal surgery due to colorectal cancer and previous studies indicated the patient has low iron. However, the patient's daughter expressed due to low absorption secondary to bowel resection, they do not want any iron supplement. On the previous admission, the patient received B12 shot every month. I have ordered occult blood test. Occult blood test result is pending at this time. 5. Acute renal failure. This is possibly secondary to dehydration. At home, the patient is on losartan potassium 50 mg by mouth daily. However, we held this medication, and we encouraged the patient to drink more fluid. 6. Colon cancer. This is a chronic issue. 7. Hypothyroidism. We will continue the patient on Synthroid. 8. Hypercholesterolemia. The patient is on Zocor. 9. Coronary artery disease. We will continue the patient on aspirin 81 mg and Zocor. The patient is also on isosorbide. 10. 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 11. Sleep apnea. Based on previous information, the patient has been diagnosed with sleep apnea. However, the patient refuses CPAP. 12. Neurogenic bladder. Patient using a straight catheter. 13. Macular degeneration. This is a chronic issue. 14. Depression. We will continue the patient on Lexapro. 15. Hypertension. At home, the patient is on isosorbide as well as Cozaar. However, we are holding the Cozaar due to acute renal failure. 16. Deep vein thrombosis (DVT) prophylaxis. We will continue the patient on heparin. 17. Constipation. The patient is on bowel regimen. My preceptor for this patient encounter was Dr. Mackey. The preceptor was physically present in the building during the encounter and was fully available. As needed, all aspects of the patient interview, examination, medical decision making process, and medical care plan development were reviewed and approved by the preceptor. The preceptor is aware and concurs with the plan as stated in the body of this note and will attest to such by his/her cosignature. AISSATOU
[2016-09-08] MEDS ORDERED: amLODIPine 5 MG TAB PO SCH (21:00)
[2016-09-08] MEDS: TAMSULOSIN 0.4 MG CAP PO SCH (21:24)
[2016-09-08] MEDS: SIMVASTATIN 20 MG TAB PO SCH (21:24)
[2016-09-08] MEDS: LACTOBACILLUS ACIDOPHILUS CAP (BACID) PO SCH (21:24)
[2016-09-08] MEDS: amLODIPine 5 MG TAB PO SCH (21:25)
[2016-09-08 22:00] VITALS: BP 146/65
[2016-09-09] MEDS: CIPROFLOXACIN 400 MG in APPROPRIATE DILUENT 1 EA IV SCH ×2 (02:35→14:12)
[2016-09-09] MEDS: LEVOTHYROXINE 50MCG TABLET (0.05MG) PO SCH (05:42)
[2016-09-09] MEDS: HEPARIN SOD (PORCINE) 5000 UNITS/ML VIAL SC SCH ×3 (05:42→22:23)
[2016-09-09 05:43] LABS: BASO % 0.1 % (0.0-1.0); EOS # 0.1 K/mm3 (0.0-0.50); EOS % 0.7 % (0.0-3.0); LARGE UNSTAINED CELL # 0.1 K/mm3 (0.0-0.4); LARGE UNSTAINED CELL % 0.6 % (0.0-4.0); LYMPH # 0.9 K/mm3 (1.5-4.5); LYMPH % 3.9 % (24.0-44.0); MEAN CORPUSCULAR HGB CONC 34.1 g/dl (32.0-36.5); MONO # 0.7 K/mm3 (0.0-0.8); MONO % 3.5 % (0.0-5.0); NEUTROPHILS % 91.1 % (36.0-66.0); PLATELET COUNT, AUTOMATED 219 k/mm3 (150-450); RED CELL DISTRIBUTION WIDTH 13.9 % (11.5-14.5); WHITE BLOOD COUNT 19.8 K/mm3 (4.0-10.0)
[2016-09-09 06:00] VITALS: BP 148/66
[2016-09-09 06:00] LABS: CALCIUM LEVEL 8.1 MG/DL (8.8-10.2); CREATININE FOR GFR 1.25 MG/DL (0.70-1.30); GLOMERULAR FILTRATION RATE 58.2 (>35); POTASSIUM SERUM 3.5 MEQ/L (3.5-5.1)
[2016-09-09] MEDS: LACTOBACILLUS ACIDOPHILUS CAP (BACID) PO SCH ×2 (08:47→22:23)
[2016-09-09] MEDS: ISOSORBIDE DIN. (ISORDIL) 30 MG TAB PO SCH (08:47)
[2016-09-09] MEDS: ASPIRIN 81 MG ENTERIC TAB PO SCH (08:48)
[2016-09-09] MEDS: ESCITALOPRAM OXALATE 10 MG TAB (LEXAPRO) PO SCH (08:48)
[2016-09-09] MEDS: MULTIVITAMINS/MINERALS THERAP 1 TAB PO SCH (08:49)
[2016-09-09 14:00] VITALS: BP 158/60
[2016-09-09] MEDS: NS 1,000 ML IV SCH (14:12)
[2016-09-09] MEDS: LOSARTAN 50 MG TAB PO SCH (14:28)
--- NOTE | 2016-09-09 14:36 | IPN ---
DATE OF VISIT: 09/09/2016 SUBJECTIVE: Patient seen and examined in the room today. Patient is able to the rest room and clean himself without any issues. The patient also stated his abdominal pain has resolved. No overnight events reported. OBJECTIVE: VITAL SIGNS: Temperature 98.7, pulse is 68, respirations 18, blood pressure 148/66, pulse oximetry 93% in room air. GENERAL: No signs of acute distress. Patient alert and awake, able to answer questions and follow commands. HEENT: Normocephalic, atraumatic. Extraocular motors grossly intact. CARDIOVASCULAR: Positive S1 and S2, regular rate. LUNGS: Clear to auscultation bilaterally. ABDOMEN: Soft, nontender, nondistended. Bowel sounds present. EXTREMITIES: No edema. No signs of cyanosis. LABORATORY DATA: WBC 19.8, hemoglobin 11.8, hematocrit 34.6, platelet count is 219. Sodium is 138, potassium 3.5, chloride 107, carbon dioxide 23, BUN 21, creatinine 1.25, GFR if 58.2, fasting glucose 119, calcium is 8.1. ASSESSMENT/PLAN: 1. Prostatitis. Patient is started on ciprofloxacin and there is improvement of WBC. Await for the urine cultures. Patient has a history of Enterococcus Faecalis and Klebsiella pneumoniae. 2. Hypertensive urgency. On admission, patient had a blood pressure of 193/81. Blood pressure has been in good control since admission. Patient is on Norvasc 5 mg by mouth every evening and isosorbide dinitrate. Patient's renal function is improving and will restart the losartan. 3. History of colorectal cancer status post surgery. Stool occult blood test is negative. 4. Acute renal injury secondary to dehydration. Improving. 5. Hypothyroidism on Synthroid. 6. Hypercholesterolemia on Zocor. 7. Coronary artery disease on aspirin 81 mg, Zocor and isosorbide. 8. Sleep apnea. Patient refused CPAP. 9. Neurogenic bladder. Patient has been using intermittent self catheterization which may be the contributing factor for the patient's current infection. 10. History of macular degeneration. 11. Depression, on Lexapro. 12. Hypertension. At home, the patient is on isosorbide as well as Cozaar. However, we are holding the Cozaar due to acute renal failure. 13. Deep vein thrombosis (DVT) prophylaxis. The patient is on heparin.
[2016-09-09] MEDS ORDERED: IBUPROFEN 800 MG TAB PO PRN (16:45)
[2016-09-09 22:00] VITALS: BP 142/72
[2016-09-09] MEDS: SIMVASTATIN 20 MG TAB PO SCH (22:23)
[2016-09-09] MEDS: TAMSULOSIN 0.4 MG CAP PO SCH (22:23)
[2016-09-09] MEDS: amLODIPine 5 MG TAB PO SCH (22:24)
[2016-09-10] MEDS: NS 1,000 ML IV SCH
[2016-09-10] MEDS: CIPROFLOXACIN 400 MG in APPROPRIATE DILUENT 1 EA IV SCH (03:00)
[2016-09-10] MEDS: HEPARIN SOD (PORCINE) 5000 UNITS/ML VIAL SC SCH (05:48)
[2016-09-10] MEDS: LEVOTHYROXINE 50MCG TABLET (0.05MG) PO SCH (05:48)
[2016-09-10 06:00] VITALS: BP 157/70
[2016-09-10 06:18] LABS: BASO % 0.3 % (0.0-1.0); EOS # 0.1 K/mm3 (0.0-0.50); EOS % 1.6 % (0.0-3.0); LARGE UNSTAINED CELL # 0.2 K/mm3 (0.0-0.4); LARGE UNSTAINED CELL % 1.9 % (0.0-4.0); LYMPH # 0.9 K/mm3 (1.5-4.5); LYMPH % 10.5 % (24.0-44.0); MEAN CORPUSCULAR HEMOGLOBIN 29.8 pg (27.0-33.0); MEAN CORPUSCULAR HGB CONC 33.5 g/dl (32.0-36.5); MEAN CORPUSCULAR VOLUME 88.9 fl (80.0-96.0); MONO # 0.5 K/mm3 (0.0-0.8); MONO % 5.4 % (0.0-5.0); NEUTROPHILS # 7.1 K/mm3 (1.8-7.7); NEUTROPHILS % 80.2 % (36.0-66.0); PLATELET COUNT, AUTOMATED 234 k/mm3 (150-450); RED CELL DISTRIBUTION WIDTH 13.6 % (11.5-14.5); WHITE BLOOD COUNT 8.8 K/mm3 (4.0-10.0)
[2016-09-10 06:26] LABS: ANION GAP 5 MEQ/L (8-16); BLOOD UREA NITROGEN 17 MG/DL (7-18); CALCIUM LEVEL 8.6 MG/DL (8.8-10.2); CARBON DIOXIDE LEVEL 28 MEQ/L (21-32); CHLORIDE LEVEL 110 MEQ/L (98-107); CREATININE FOR GFR 1.27 MG/DL (0.70-1.30); FERRITIN 164 NG/ML (26-388); GLOMERULAR FILTRATION RATE 57.1 (>35); GLUCOSE, FASTING 118 MG/DL (83-110); PERCENT SATURATION 9.3 % (19.7-37.4); POTASSIUM SERUM 4.2 MEQ/L (3.5-5.1); SODIUM LEVEL 143 MEQ/L (136-145); TOTAL IRON BINDING CAPACITY 312 UG/DL (250-450)
[2016-09-10] MEDS ORDERED: CIPR-249 PO ×2 (08:41→10:02)
[2016-09-10] MEDS ORDERED: BACITAB PO (08:41)
[2016-09-10] MEDS: LACTOBACILLUS ACIDOPHILUS CAP (BACID) PO SCH (09:23)
[2016-09-10] MEDS: ESCITALOPRAM OXALATE 10 MG TAB (LEXAPRO) PO SCH (09:23)
[2016-09-10] MEDS: ASPIRIN 81 MG ENTERIC TAB PO SCH (09:23)
[2016-09-10] MEDS: MULTIVITAMINS/MINERALS THERAP 1 TAB PO SCH (09:23)
[2016-09-10 09:30] VITALS: BP 168/68
[2016-09-10] MEDS: ISOSORBIDE DIN. (ISORDIL) 30 MG TAB PO SCH (09:30)
[2016-09-10] MEDS: LOSARTAN 50 MG TAB PO SCH (09:30)
[2016-09-10 10:33] LABS: VITAMIN B12 LEVEL 509 PG/ML (247-911)
[2016-09-10 10:46] LABS: FOLATE > 24.0 NG/ML (>5.4)
--- NOTE | 2016-09-10 22:25 | DSES ---
DATE OF ADMISSION: 09/09/2016 DATE OF DISCHARGE: 09/10/2016 PRIMARY CARE PROVIDER: Gosia Andino PRIMARY RESIDENCY: [facility] in assisted living. CONSULTANTS: None. PROCEDURES: None. DISCHARGE DIAGNOSES: 1. Prostatitis. 2. Hypertensive urgency. 3. History of colorectal cancer, status post surgery. 4. Acute kidney injury secondary to dehydration. 5. Hypothyroidism. 6. Hypercholesterolemia. 7. History of coronary artery disease. 8. Sleep apnea. 9. Neurogenic bladder. 10. History of macular degeneration. 11. Depression. 12. Hypertension. HOSPITALIZATION COURSE: The patient is an 85-year-old male who was sent from [facility] to [facility] on 09/08/2016 with abdominal pain. The patient was found to have hypertensive urgency and the patient's blood pressure medication is being adjusted and the patient was admitted prostatitis. The patient was started on empirical antibiotic of ciprofloxacin. At the time of admission, the patient showed extremely high leukocytosis. With medical management and antibiotic treatment, the patient showed continuous improvement of the symptoms and the patient's white count returned to baseline. With IV hydration, the patient's acute kidney injury also showed significant improvement. On 09/10/2016, the patient is medically stable for discharge with recommendations to finish a course of antibiotics for prostatitis and the patient should follow with the primary care provider in 7 to 10 days. OBJECTIVE: VITAL SIGNS: Temperature is 97, pulse is 60, respirations 19, blood pressure is 157/70, pulse oximetry 96% on room air. LABORATORY DATA: On admission, the patient has a WBC of 26.3. At the time of discharge, the patient's WBC is 8.8. Hemoglobin is 12.7, hematocrit 37.8, platelet count is 234. Sodium is 143, potassium 4.2, chloride is 110, carbon dioxide is 28, BUN 17, creatinine 1.27, GFR is 57.1, fasting glucose is 118, calcium is 8.6, iron is 29, TIBC 312, ferritin is 164, folate is greater than 24, vitamin B12 of 509. Microbiology: Blood culture from 09/08/2016 is negative times two sets after 48 hours. Stool hemoccult is negative. Urine culture is pending. IMAGING STUDIES: Chest x-ray on 09/08/[address] showed [address] disease[address] CT of the chest without contrast from 09/08/2016 showed no acute infiltrate or effusion. There is chronic discoid atelectasis/scarring in the right middle lobe and linear segments of the left upper lobe. There are calcified granulomas in the lung, christy, mediastinum and spleen. Unchanged hepatic cyst. Unchanged cholelithiasis. CT of the abdomen and pelvis without contrast on 09/08/2016 showed cholelithiasis without biliary duct dilatation, hepatic cyst, calcified granulomas in the liver and spleen, left renal cyst. No evidence for surgery of ascending colon, probable partial colectomy, diverticulosis without diverticulitis. No ascites or adenopathy. No hydronephrosis. DISCHARGE INSTRUCTIONS: Discontinue line, discharge to [facility] assisted living, activity as tolerated, low salt diet as tolerated. The patient should followup with primary care provider, Gosia Andino, in 7 to 10 days. DISCHARGE MEDICATIONS: - ciprofloxacin 500 mg by mouth twice a day for 14 days supply - Tylenol 650 mg by mouth every 4 hours as needed - Xanax 0.5 mg by mouth twice a day as needed - amlodipine 5 mg by mouth at night - aspirin 81 mg by mouth daily - vitamin D3 5000 units by mouth daily - donepezil 10 mg by mouth at night - citalopram 10 mg by mouth daily - fenofibrate 120 mg by mouth every 2 days - isosorbide dinitrate 30 mg by mouth daily - Synthroid 15 mcg by mouth in the morning - Cozaar 15 mg by mouth daily - Maalox 15 mL by mouth three times a day as needed - multivitamin one tablet by mouth daily - MiraLAX 17 grams by mouth daily as needed - Senna one tablet by mouth daily as needed - simvastatin 20 mg by mouth at night - Flomax 0.4 mg by mouth at night - Bacid two tablets by mouth twice a day with meals DISCHARGE CONDITION: Stable. DISCHARGE TIME: Greater than 30 minutes.
[2016-12-27] MEDS ORDERED: BUSP5TA PO (20:26)
== END 2016-09-10 11:34 | disposition home or self-care (01) | DRG 305 ==
LOC: M ED 06:56 → EDBD 06:56 → M ED INP 14:07 → M MSPAV 15:05 → OBSVTOIN 09-09 13:32
PROVIDERS: ADMIT Internal Medicine; ATTEND Internal Medicine
DX: I16.0 Hypertensive urgency (principal); N17.9 Acute kidney failure, unspecified; N41.9 Inflammatory disease of prostate, unspecified; E03.9 Hypothyroidism, unspecified; E78.00 Pure hypercholesterolemia, unspecified; I25.10 Atherosclerotic heart disease of native coronary artery without angina pectoris; N31.9 Neuromuscular dysfunction of bladder, unspecified; G47.30 Sleep apnea, unspecified; F32.9 Major depressive disorder, single episode, unspecified; I10 Essential (primary) hypertension; Z85.038 Personal history of other malignant neoplasm of large intestine; Z79.82 Long term (current) use of aspirin; Z79.899 Other long term (current) drug therapy; Z95.5 Presence of coronary angioplasty implant and graft; Z87.891 Personal history of nicotine dependence

== ENCOUNTER 2016-11-10 11:00 | Emergency (ER) | payer MEDICARE, OTHER ==
[~2016-11-10] VITALS: Ht 165.1 cm; Wt 87.2 kg
[~2016-11-10 11:00] MED LIST changes: +DONETAB6 PO; +FLOM5CAP PO; +MAALSUS2 PO; +MIRA33504 PO
[2016-11-10] MEDS ORDERED: NS 500 ML IV ONE (11:15)
[2016-11-10] MEDS ORDERED: VITA500T53 PO (11:18)
[2016-11-10] MEDS ORDERED: ARIC1TAB2 PO (11:18)
[2016-11-10 11:40] LABS: BASO % 0.5 % (0.0-1.0); EOS # 0.1 K/mm3 (0.0-0.50); EOS % 1.8 % (0.0-3.0); LARGE UNSTAINED CELL # 0.1 K/mm3 (0.0-0.4); LYMPH # 0.7 K/mm3 (1.5-4.5); LYMPH % 8.1 % (24.0-44.0); MEAN CORPUSCULAR HEMOGLOBIN 28.8 pg (27.0-33.0); MEAN CORPUSCULAR HGB CONC 32.8 g/dl (32.0-36.5); MONO # 0.3 K/mm3 (0.0-0.8); MONO % 4.3 % (0.0-5.0); NEUTROPHILS # 6.3 K/mm3 (1.8-7.7); NEUTROPHILS % 84.3 % (36.0-66.0); PLATELET COUNT, AUTOMATED 247 k/mm3 (150-450); RED CELL DISTRIBUTION WIDTH 13.5 % (11.5-14.5); WHITE BLOOD COUNT 7.5 K/mm3 (4.0-10.0)
--- NOTE | 2016-11-10 12:13 | REP ---
TWO VIEW CHEST: Two views of the chest are performed and compared to prior study of 09/08/2016. There is mild chronic interstitial fibrosis without evidence of acute infiltrate. There is mild cardiomegaly. There is calcification and ectasia of the thoracic aorta. The mediastinal silhouette is unchanged. Multiple sternal wires are present. There are mild degenerative changes of the spine. IMPRESSION: Mild chronic changes and cardiomegaly. No acute pulmonary disease. Signed by Samuel Buchanan MD 11/10/2016 05:01 P
[2016-11-10 12:15] LABS: ALBUMIN 3.4 GM/DL (3.2-5.2); ALBUMIN/GLOBULIN RATIO 1.03 (1.00-1.93); ALKALINE PHOSPHATASE 42 U/L (45-117); ALT/SGPT 20 U/L (12-78); ANION GAP 11 MEQ/L (8-16); AST/SGOT 14 U/L (15-37); BILIRUBIN,DIRECT < 0.1 MG/DL (0.0-0.2); BILIRUBIN,TOTAL 0.3 MG/DL (0.2-1.0); BLOOD UREA NITROGEN 24 MG/DL (7-18); CALCIUM LEVEL 8.8 MG/DL (8.8-10.2); CARBON DIOXIDE LEVEL 23 MEQ/L (21-32); CHLORIDE LEVEL 109 MEQ/L (98-107); GLUCOSE, FASTING 129 MG/DL (83-110); POTASSIUM SERUM 4.1 MEQ/L (3.5-5.1); SODIUM LEVEL 143 MEQ/L (136-145); TOTAL PROTEIN 6.7 GM/DL (6.4-8.2)
[2016-11-10] MEDS ORDERED: LOSA50TA20 PO (13:31)
[2016-11-10] MEDS ORDERED: BACITAB PO (13:31)
[2016-11-10] MEDS ORDERED: SENN1TAB10 PO (13:31)
[2016-11-10] MEDS ORDERED: LEXA1TAB2 PO (13:31)
[2016-11-10] MEDS ORDERED: cloNIDine 0.1 MG TAB PO ONE (16:30)
[2016-11-10 16:32] VITALS: BP 205/79
[2016-11-10 17:45] VITALS: BP 156/63
--- NOTE | 2016-11-10 19:57 | ECGEPIP ---
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
[2016-12-27] MEDS ORDERED: BUSP5TA PO (20:26)
== END 2016-11-10 17:46 | disposition home or self-care (01) ==
LOC: M ED 11:00 → EDBD 11:00 → M ED 17:46
DX: I95.9 Hypotension, unspecified (principal); N28.9 Disorder of kidney and ureter, unspecified; R41.0 Disorientation, unspecified; I10 Essential (primary) hypertension; G47.30 Sleep apnea, unspecified; I25.2 Old myocardial infarction; Z95.1 Presence of aortocoronary bypass graft

== ENCOUNTER → 2016-11-12 | Outpatient (REF) | payer MEDICARE, OTHER ==
[~2016-11-12] MED LIST changes: +ARIC1TAB2 PO; +BUSP5TA PO; +SULF1TAB23 PO; +VITA500T53 PO
[2016-11-12 11:05] LABS: CALCIUM LEVEL 8.7 MG/DL (8.8-10.2); CREATININE FOR GFR 1.52 MG/DL (0.70-1.30); GLOMERULAR FILTRATION RATE 46.3 (>35)
== END ==
PROVIDERS: ATTEND Nurse Practitioner Adult Health
DX: N18.3 Chronic kidney disease, stage 3 (moderate) (principal); D51.9 Vitamin B12 deficiency anemia, unspecified

== ENCOUNTER 2016-11-30 10:28 | Inpatient (IN) | payer MEDICARE, OTHER ==
[~2016-11-30] VITALS: Ht 175.3 cm; Wt 83.7 kg
[~2016-11-30 10:28] MED LIST changes: -BUSP5TA PO; -SULF1TAB23 PO
[2016-11-30 11:17] LABS: ADD MANUAL DIFFER NO; BASO % 0.5 % (0.0-1.0); DIFF SLIDE NUMBER 119; EOS # 0.2 10^3/uL (0.0-0.50); EOS % 3.5 % (0.0-3.0); IMMATURE GRANULOCYTE % 0.3 % (0-0); LYMPH # 0.6 10^3/uL (1.5-4.5); LYMPH % 10.8 % (24.0-44.0); MEAN CORPUSCULAR HEMOGLOBIN 29.2 pg (27.0-33.0); MEAN CORPUSCULAR HGB CONC 33.8 g/dl (32.0-36.5); MEAN CORPUSCULAR VOLUME 86.3 fl (80.0-96.0); MONO # 0.4 10^3/uL (0.0-0.8); MONO % 7.7 % (0.0-5.0); NEUTROPHILS # 4.4 10^3/uL (1.8-7.7); NEUTROPHILS % 77.2 % (36.0-66.0); PLATELET COUNT, AUTOMATED 225 10^3/uL (150-450); RED CELL DISTRIBUTION WIDTH 14.2 % (11.5-14.5); WHITE BLOOD COUNT 5.7 10^3/uL (4.0-10.0)
[2016-11-30 11:31] LABS: INR 1.06
[2016-11-30 11:38] LABS: ANION GAP 8 MEQ/L (8-16); BLOOD UREA NITROGEN 23 MG/DL (7-18); CALCIUM LEVEL 8.5 MG/DL (8.8-10.2); CARBON DIOXIDE LEVEL 24 MEQ/L (21-32); CHLORIDE LEVEL 108 MEQ/L (98-107); CREATININE FOR GFR 1.55 MG/DL (0.70-1.30); GLOMERULAR FILTRATION RATE 45.3 (>35); GLUCOSE, FASTING 167 MG/DL (83-110); POTASSIUM SERUM 3.8 MEQ/L (3.5-5.1); SODIUM LEVEL 140 MEQ/L (136-145)
--- NOTE | 2016-11-30 12:49 | ECGEPIP ---
Stationary ECG Study 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
[2016-11-30] MEDS ORDERED: cefTRIAXone SOD 1 GM in D5W 50 ML IV ONE (13:15)
[2016-11-30] MEDS ORDERED: ASPIRIN 325 MG TAB PO ONE (13:15)
[2016-11-30] MEDS ORDERED: ACETAMINOPHEN TAB 650MG DOSE (2X325MG) PO PRN (14:30)
[2016-11-30] MEDS ORDERED: ALPRAZolam 0.5 MG TAB PO PRN (14:30)
[2016-11-30] MEDS ORDERED: MIRALAX *UNIT DOSE* 17GM PACKET PO PRN (14:30)
[2016-11-30 15:19] VITALS: BP 160/80
--- NOTE | 2016-11-30 15:35 | HPE ---
DATE OF ADMISSION: 11/30/2016 PRIMARY CARE PROVIDER: Gosia Andino NP. ONCOLOGIST: Dr. Srinivasan Ozuna. CHIEF COMPLAINT: Weakness and dizziness while eating breakfast. HISTORY OF PRESENT ILLNESS: The patient is an 86-year-old man who resides at the [facility] who was eating breakfast this morning at approximately 9 a.m. when he began to feel dizzy and weak. He reportedly had a left facial droop with drooling on the left side of his face. He did not have any loss of consciousness. He does not remember much more of the event. He denies any other associated symptoms. He denies loss of consciousness, nausea, vomiting, chest pressure, shortness of breath, diarrhea. He has chronic neurogenic bladder, which is straight catheterized. Otherwise, he has been in his usual state of health. He tells me that he has had episodes like this in the past but could never what the etiology was determined to be. At the present time, he feels "pretty much back to normal". PAST MEDICAL HISTORY: Colon cancer, stage III, status post resection and chemotherapy. Hypothyroidism. Dyslipidemia. Coronary artery disease, status post coronary artery bypass graft (CABG). Benign prostatic hypertrophy (BPH). Iron deficiency anemia. Depression. Anxiety. Hypertension. Dementia. Macular degeneration. Neurogenic bladder. Obstructive sleep apnea not compliant with CPAP. ALLERGIES: The patient has no known drug allergies. PAST SURGICAL HISTORY: Transurethral resection of the prostate (TURP). Coronary artery bypass graft (CABG). Bowel resection. SOCIAL HISTORY: He lives at [facility] [place]. He has two daughters. 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 He has a [id number] history but has not smoked in many years. He denies alcohol or any illicit drug use. FAMILY HISTORY: Noncontributory. REVIEW OF SYSTEMS: Negative other than what is mentioned in the history of present illness (HPI). HOME MEDICATIONS: - vitamin D3 5000 units daily - fenofibrate 120 mg every 2 days - Maalox 440, 15 mL, 10 three times a day as needed indigestion. - acetaminophen 650 every 4 hours as needed pain - Xanax 0.5 mg twice a day as needed anxiety. - amlodipine 5 mg every evening. - aspirin 81 mg daily - vitamin B12 1000 mcg daily - Lexapro 20 mg daily - isosorbide dinitrate 30 mg daily - Bacid two tablets by mouth twice a day - levothyroxine 50 mcg daily - losartan 50 mg daily - multivitamin one tablet daily - MiraLAX 17 grams daily as needed constipation - senna 8.6 mg by mouth daily - simvastatin 20 mg nightly - tamsulosin 0.4 mg every night - donepezil PHYSICAL EXAMINATION: Temperature 97.6, heart rate is 52, respiratory rate 15, blood pressure 162/74, oxygen saturation 95% on room air. GENERAL: He is a pleasant elderly man, well-groomed lying flat in bed. He does not appear to be in any acute distress. HEENT: He does appear to have some mild left side facial droop, however, it is unclear if this is baseline or is residual from earlier this morning. The patient, himself, is unaware. This is my first time seeing him. Otherwise, cranial nerves II through XII appear to be grossly intact. He has mildly dry mucous membranes. No elevation of central venous pressure (CVP). CARDIOVASCULAR: S1, S2. He is bradycardiac without extra heart sounds appreciated. RESPIRATORY: Exam is clear. ABDOMEN: Exam is obese but bowel sounds are present. Abdomen is soft and benign. EXTREMITIES: No clubbing, cyanosis or edema. LABORATORY STUDIES: WBC 5.7, hemoglobin 11.9, platelet count 225. Chemistry panel: Sodium 140, potassium 3.8, chloride 108, bicarbonate 24, BUN 23, creatinine 1.5. Baseline appears to be approximately 1.3 to 1.4. One set of cardiac enzymes is negative. INR 1.0. Urinalysis is positive for 24 WBC, 1+ leukocyte esterase, 1+ bacteria. Microbiology blood cultures and urine cultures are pending. IMAGING: The patient did have a CT scan of his head. Preliminary report reveals no acute disease. He also had a portable chest x-ray preliminary report reveals chronic changes. ASSESSMENT/PLAN: This is an 86-year-old man with short-lived episode of dizziness, weakness and facial droop while eating breakfast. PROBLEMS: 1. Episode of weakness with possible facial droop: The etiology is not immediately clear. I did speak with the emergency room provider who had immediate concern for possible transient ischemic accident (TIA). Symptoms do appear to be resolved as far as he is concerned at this point. We will check an MRI/MRA. He did have a recent echocardiogram. I will not repeat this. I will check a duplex of his carotids, TSH, A1c, lipid panel. We will attempt to control his blood pressure. He will be admitted to the progressive care unit. We will trend his troponins and monitor his heart rhythm for any AV blocks. Complete neural checks. Given that he tells me he feels unsteady on his feet he goes to stand right now. I will have him seen by physical therapy(PT)and occupational therapy (OT). It is also notable that the patient is quite bradycardiac. His heart rate dipping down in the 40s during my conversation with him. He is not on any cardiac medications to provoke this. However, I do notice that he is on donepezil. Given that this can cause heart block, I will, for the time being, hold this medication and monitor his heart rate. He may have had an episode of symptomatic bradycardia associated with it. Will monitor him on telemetry as outlined above. 2. Colon cancer, status post resection and chemotherapy. This is reportedly in remission. 3. Hypothyroidism: Continue with Synthroid. Will check a TSH. 4. Dyslipidemia: He is on a statin and an aspirin. Continue. 5. Coronary artery disease. He is on aspirin and statin. He is not on a beta coreen. I would not advise this given this bradycardia. He is, however, on Isordil. 6. Hypertension: He is on losartan, amlodipine and Isordil. 7. Anxiety: He is on Xanax and Lexapro. 8. Dementia: As outlined above, we will hold his Aricept. He does appear to having difficulty with memories. He is oriented at this time. He knows the year. He knows the month. He knows that he is in the hospital emergency room and he can remember the events of this morning. He cannot tell me who the president is and cannot remember yesterday. 9. Neurogenic bladder: The patient' self catheterizes as needed at [facility] [place]. I would suggest that it be done twice a day while in hospital. 10. Benign prostatic hypertrophy (BPH): The patient is on Flomax. 11. B12 deficiency: He is on supplementation. 12. Chronic constipation: Will continue with this bowel regimen. 13. Abnormal UA: The patient has a neurogenic bladder. He self catheterizes and I suspect his UA is always dirty and culture will be positive, however, he is asymptomatic. He is afebrile. He is not tachycardic. There is no leukocytosis. My suspicion for infectious etiology is lower. He did receive 1 gram of Rocephin in the emergency room but for the time being I will hold off on any further antibiotics. I suspect his urine culture will return positive. in the absence of him becoming septic or appearing ill, I would not empirically pretreat at this time. 14. Deep venous thrombosis prophylaxis: The patient will be on heparin.
--- NOTE | 2016-11-30 18:10 | REPUSA ---
MRA of the brain Clinical history: headaches. Technique: [id number] MRA images of the brain were obtained without administration of contrast. 3 -D MIP images were also obtained. Findings: The vascular structures extending from the distal carotid and vertebrobasilar arterial syst ems, through the algaaciq of Goins, demonstrate normal caliber and contour. There is no evidence of an eurysm, stenosis, or thrombosis. Impression: Unremarkable MRA examination of the brain.
--- NOTE | 2016-11-30 18:10 | REPUSA ---
MRI of the brain. Clinical history: headaches. Comparison: 08/12/2016. Technique: Multiecho multiplanar MRI images of the brain were obtained without administration of cont rast. Diffusion weighted images with ADC mapping was also obtained. Findings: The ventricles and sulci are symmetric bilaterally. The brain parenchyma demonstrates diffuse mild sc attered foci of T2 hyperintensity in the periventricular and subcortical white matter. There is no mi dline shift, mass effect, or extra-axial fluid collection. The midline intracranial structures do not demonstrate any gross abnormalities. The cervical cranial junction is intact. The orbits are unremar kable. The visualized paranasal sinuses and mastoid air cells are clear. The osseous structures and s uperficial soft tissues are unremarkable. The vascular structures demonstrate appropriate flow voids. Impression: No evidence of acute infarct or hemorrhage. Mild chronic small vessel ischemic disease.
[2016-11-30 19:13] VITALS: BP_SYST 164; BP_SYST 174; BP_SYST 200; BP_DIAS 72; BP_DIAS 78; BP_DIAS 80; BP_DIAS 86
[2016-11-30 20:00] VITALS: BP_SYST 140; BP_SYST 150; BP_SYST 160; BP_DIAS 58; BP_DIAS 62; BP_DIAS 74
[2016-11-30] MEDS: HEPARIN SOD (PORCINE) 5000 UNITS/ML VIAL SQ SCH (20:27)
[2016-11-30] MEDS: LACTOBACILLUS ACIDOPHILUS CAP (BACID) PO SCH (20:27)
[2016-11-30] MEDS: TAMSULOSIN 0.4 MG CAP PO SCH (20:28)
[2016-11-30] MEDS: amLODIPine 5 MG TAB PO SCH (20:28)
[2016-11-30] MEDS: SIMVASTATIN 20 MG TAB PO SCH (20:28)
[2016-11-30] MEDS ORDERED: DONEPEZIL 5 MG TAB PO SCH (21:00)
[2016-12-01] VITALS (9 sets, daily range): BP systolic 122–188; BP diastolic 60–86
[2016-12-01 05:20] LABS: MEAN CORPUSCULAR HEMOGLOBIN 28.3 pg (27.0-33.0); MEAN CORPUSCULAR HGB CONC 32.8 g/dl (32.0-36.5); MEAN CORPUSCULAR VOLUME 86.4 fl (80.0-96.0); RED CELL DISTRIBUTION WIDTH 14.3 % (11.5-14.5); WHITE BLOOD COUNT 12.3 10^3/uL (4.0-10.0)
[2016-12-01] MEDS: LEVOTHYROXINE 50MCG TABLET (0.05MG) PO SCH (05:31)
[2016-12-01 05:47] LABS: ANION GAP 9 MEQ/L (8-16); BLOOD UREA NITROGEN 23 MG/DL (7-18); CALCIUM LEVEL 8.6 MG/DL (8.8-10.2); CARBON DIOXIDE LEVEL 23 MEQ/L (21-32); CHLORIDE LEVEL 108 MEQ/L (98-107); CHOLESTEROL LEVEL 168 MG/DL (<200); CREATININE FOR GFR 1.31 MG/DL (0.70-1.30); GLUCOSE, FASTING 116 MG/DL (83-110); SODIUM LEVEL 140 MEQ/L (136-145); TRIGLYCERIDES LEVEL 403 MG/DL (<150)
--- NOTE | 2016-12-01 07:34 | REP ---
REASON: TIA. COMPARISON: 07/14/2016 There is extensive echogenic material seen in the internal carotid artery bilaterally, some of which casts an acoustic shadow consistent with calcific deposition. RIGHT LEFT CCA systolic 46.4 cm/s 85.3 cm/s CCA diastolic 6.5 cm/s 11.0 cm/s ICA systolic 32.2 cm/s 174.8 cm/s ICA diastolic 20.0 cm/s 44.7 cm/s ICA/CCA ratio 1.56 2.05 Analysis of the spectral waveform shows left internal carotid arterial spectral broadening and antegrade flow in the left vertebral artery. The right vertebral artery was not visualized. 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 Signed by Asaf Parry DO 12/01/2016 12:09 P
[2016-12-01] MEDS: HEPARIN SOD (PORCINE) 5000 UNITS/ML VIAL SQ SCH ×2 (08:26→21:24)
[2016-12-01] MEDS: ISOSORBIDE DIN. (ISORDIL) 30 MG TAB PO SCH (08:26)
[2016-12-01] MEDS: LACTOBACILLUS ACIDOPHILUS CAP (BACID) PO SCH ×2 (08:26→21:25)
[2016-12-01] MEDS: LOSARTAN 50 MG TAB PO SCH (08:27)
[2016-12-01] MEDS: ESCITALOPRAM OXALATE 10 MG TAB (LEXAPRO) PO SCH (08:27)
[2016-12-01] MEDS: ASPIRIN 81 MG ENTERIC TAB PO SCH (08:27)
[2016-12-01] MEDS: CYANOCOBALAMIN 500 MCG TAB PO SCH (08:27)
[2016-12-01] MEDS: MULTIVITAMINS/MINERALS THERAP 1 TAB PO SCH (08:27)
[2016-12-01] MEDS: SENNA 8.6 MG TAB (SENOKOT) PO SCH (08:27)
[2016-12-01 08:55] LABS: FREE T4 0.87 NG/DL (0.76-1.46)
--- NOTE | 2016-12-01 10:39 | IPNPDOC ---
Subjective Date Seen The patient was seen on 12/01/16. Subjective Chief Complaint/HPI The patient is a 86-year-old male admitted with a reason for visit of Dizziness. Events since last encounter Patient was seen and examined this morning at bedside. States he didn't sleep that well. The patient was unable articulate real well in the beginning, after just waking up. Later in the morning the patient could articulate and appropriately answer questions.. Per nursing, the patient hasn't had any pertinent neuro checks and had no overnight events. Per telemetry the patient has been sinus rhythm since admission. General: Reports: Normal Appetite, Denies: Chills, Night Sweats, Fatigue, Malaise Eyes: Denies: Pain, Vision change ENT: Denies: Dysphagia, Sore Throat Skin: Denies: Rash, Lesions, Bruising Pulmonary: Denies: Dyspnea, Cough Cardiovascular: Denies: Chest Pain, Palpitations, Edema, Lt Headedness Gastrointestinal: Denies: Nausea, Vomiting, Abdominal Pain, Diarrhea, Constipation Genitourinary: Denies: Dysuria, Frequency, Incontinence, Hematuria, Retention Hematologic: Denies: Bruising, Bleeding Excessively Endocrine: Denies: Polydipsia, Polyphagia, Polyuria Musculoskeletal: Denies: Neck Pain, Back Pain, Joint Pain, Muscle Pain, Spasms Neurological: Denies: Weakness, Numbness, Change in speech, Confusion Psych: Reports: Mood Normal, Denies: Depression, Memory Issues Objective Physical Examination General Exam: Positive: Alert Eye Exam: Positive: PERRLA, Conjunctiva & lids normal Neck Exam: Negative: Supple, JVD Chest Exam: Positive: Clear to auscultation Heart Exam: Positive: Rate Normal, Regular Rhythm, Normal S1, Normal S2 Telemetry: Positive: Sinus Abdomen Exam: Positive: Normal bowel sounds, Soft, Negative: Tenderness Neuro Exam: Positive: Strength at 5/5 X4 ext, Sensation Intact, Other (left side lip droop ) Psych Exam: Positive: Mental status NL, Oriented x 3 Assessment /Plan Assessment 1. Left sided facial droop due to likely TIA- CT and MRI/MRA were negative for infract or hemorrhage. Patient had a carotid ultrasound which showed 50-69% stenosis of the left carotid artery. Lipid panel showed an elevated triglyceride of 403. A1c was 6.3. Troponin has been consistently negative at 0.2 x3, and will continue telemetry. The patient has been sinus rhythm since being on the floor. Neuro checks will continue with q4h. If the patient is continue to improve and pending PT and OT assessment will consider discharge in 24-48 hours. 2. Colon cancer, status post resection and chemotherapy. This is reportedly in remission. 3. Hypothyroidism: TSH was elevated at 4.20 and T4 is good at 0.87. Continue with Synthroid. 4. Dyslipidemia: Continue with home ASA and statin 5. Coronary artery disease. Continue with ASA, statin and Isordil. 6. Hypertension (resolving) BP this morning was 122/79. Will continue on home medications of losartan, amlodipine and Isordil. Will continue to monitor with vital checks every q4h. 7. Anxiety: continue on Xanax and Lexapro. 8. Dementia: Continue holding the patient Aricept, due to bradycardia on admission. Heart rate is 60s since being on the floor. Will continue with neuro checks q4h. 9. Neurogenic bladder: The patient' self catheterizes as needed at [facility] [place]. Continue wth twice a day while on the floor. 10. Benign prostatic hypertrophy (BPH): Continue with Flomax. 11. B12 deficiency: Continue with supplementation 12. Chronic constipation: Will continue with bowel regimen: Miralx and Senokot. 13. Abnormal UA: Neurogenic bladder. Self Catheterizes BID. Afebrile since admission and no leukocytosis. Physical exam patient denies any lower abdominal pain or cramping. Patient was given Rocephin in the ER. Urine and blood cultures are currently pending. Unlikely the patient has an UTI, will not be treating empirically as of this time. Suspicious for an infectious cause is low. 14. Deep venous thrombosis prophylaxis: The patient will be on heparin. Plan/VTE VTE Prophylaxis Ordered?: Yes (Heparin) VS, I&O, 24H, Fishbone Vital Signs/I&O Vital Signs Date Time Temp Pulse Resp B/P (MAP) Pulse Ox O2 Delivery O2 Flow Rate FiO2 12/01/16 08:27 122/79 12/01/16 07:55 98.7 60 20 95 Room Air 11/30/16 10:45 2.0 Laboratory Data 24H LABS Laboratory Tests 2 11/30/16 11:04: Immature Granulocyte % (Auto) 0.3H, White Blood Count 5.7, Red Blood Count 4.08L , Hemoglobin 11.9L, Hematocrit 35.2L, Mean Corpuscular Volume 86.3, Mean Corpuscular Hemoglobin 29.2, Mean Corpuscular Hemoglobin Concent 33.8, Red Cell Distribution Width 14.2, Platelet Count 225, Neutrophils (%) (Auto) 77.2H, Lymphocytes (%) (Auto) 10.8L, Monocytes (%) (Auto) 7.7H, Eosinophils (%) (Auto) 3.5H, Basophils (%) (Auto) 0.5, Neutrophils # (Auto) 4.4, Lymphocytes # (Auto) 0.6L, Monocytes # (Auto) 0.4, Eosinophils # (Auto) 0.2, Basophils # (Auto) 0.0, Immature Granulocyte # (Auto) 0.0, Nucleated Red Blood Cells % (auto) 0.0, Prothrombin Time 13.9, Prothromb Time International Ratio 1.06, Activated Partial Thromboplast Time 20.0L, Anion Gap 8, Glomerular Filtration Rate 45.3, Blood Urea Nitrogen 23H, Creatinine 1.55H, Sodium Level 140, Potassium Level 3.8 , Chloride Level 108H, Carbon Dioxide Level 24, Calcium Level 8.5L, Total Creatine Kinase 84, Creatine Kinase MB 1.4, Creatine Kinase MB Relative Index 1.66, Troponin I < 0.02 11/30/16 11:35: Urine Appearance HAZY, Urine Color YELLOW, Urine pH 5.0, Urine Specific [place] 1.010, Urine Protein 1+H, Urine Glucose (UA) NEGATIVE, Urine Ketones NEGATIVE, Urine Urobilinogen 0.2, Urine Bilirubin NEGATIVE, Urine Leukocyte Esterase 1+H, Urine Blood 1+H, Urine Nitrite NEGATIVE, Urine WBC (Auto) 24H, Urine RBC (Auto) 4H, Urine Hyaline Casts (Auto) 2, Urine Bacteria (Auto) 1+H, Urine Squamous Epithelial Cells 0, Urine Amorphous Sediment SMALLH, Urine Sperm (Auto) 11/30/16 17:40: Troponin I < 0.02 11/30/16 23:03: Troponin I < 0.02 12/01/16 05:12: Anion Gap 9, Glomerular Filtration Rate 55.0, Estimated Mean Plasma Glucose 134H , Hemoglobin A1c 6.3H, Calcium Level 8.6L, Troponin I < 0.02, Triglycerides Level 403H, LDL Cholesterol , Total Cholesterol 168, Non-HDL Cholesterol (LDL + VLDL) 128, Total HDL Cholesterol 40, Cholesterol/HDL Ratio 4.200, Thyroid Stimulating Hormone (TSH) 4.970H, Free Thyroxine 0.87, Free Triiodothyronine 2.0L CBC/BMP Laboratory Tests 11/30/16 11:04 Red Blood Count 4.08 L, Mean Corpuscular Volume 86.3, Mean Corpuscular Hemoglobin 29.2, Mean Corpuscular Hemoglobin Concent 33.8, Red Cell Distribution Width 14.2, Neutrophils (%) (Auto) 77.2 H, Lymphocytes (%) (Auto) 10.8 L, Monocytes (%) (Auto) 7.7 H, Eosinophils (%) (Auto) 3.5 H, Basophils (%) (Auto) 0.5, Neutrophils # (Auto) 4.4, Lymphocytes # (Auto) 0.6 L, Monocytes # ( Auto) 0.4, Eosinophils # (Auto) 0.2, Basophils # (Auto) 0.0, Calcium Level 8.5 L , Total Creatine Kinase 84 12/01/16 05:12 Red Blood Count 4.48, Mean Corpuscular Volume 86.4, Mean Corpuscular Hemoglobin 28.3, Mean Corpuscular Hemoglobin Concent 32.8, Red Cell Distribution Width 14.3 Microbiology Microbiology 11/30/16 Blood Culture, Received Pending 11/30/16 Blood Culture, Received Pending 11/30/16 Urine Culture, Received Pending GME ATTESTATION GME ATTESTATION My preceptor for this patient encounter was physically present in the building during the encounter and was fully available. As needed, all aspects of the patient interview, examination, medical decision making process, and medical care plan development were reviewed and approved by the preceptor. Preceptor is aware and concurs with the plan as stated in the body of this note and will attest to such by his/her cosignature. MNADEEP RODGERS DO Dec 01, 2016 10:39
--- NOTE | 2016-12-01 11:03 | REP ---
Stroke like symptoms. COMPARISON: 08/12/2016 which showed no acute abnormality. 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 There is no evidence of an acute intracranial hemorrhagic or nonhemorrhagic event. The ventricles and sulci are unchanged and appear age appropriate. There is no shift in the midline structures. There is diffuse deep white matter ischemic change status quo. There is no skull fracture. The images paranasal sinuses and mastoid air cells are clear. IMPRESSION: No acute disease or significant change from 08/12/2016 with findings as described above. Signed by Asaf Parry DO 12/01/2016 12:13 P
--- NOTE | 2016-12-01 11:04 | REP ---
REASON FOR EXAM: Stroke-like symptoms. COMPARISON: 11/10/2016 The technique utilized in obtaining the radiograph has magnified the cardiac silhouette and accentuated the interstitial markings. Once again, there is fibrotic change status quo. There is cardiomegaly. There has been previous median sternotomy. The bones are unchanged. IMPRESSION: Stable appearing chronic changes and technique as described above. Signed by Asaf Parry DO 12/01/2016 12:13 P
[2016-12-01] MEDS ORDERED: SLF 3 ML SYR IV PRN (18:45)
[2016-12-01] MEDS: amLODIPine 5 MG TAB PO SCH (21:25)
[2016-12-01] MEDS: TAMSULOSIN 0.4 MG CAP PO SCH (21:25)
[2016-12-01] MEDS: SIMVASTATIN 20 MG TAB PO SCH (21:25)
[2016-12-01] MEDS: SLF 3 ML SYR IV SCH (22:00)
[2016-12-02 04:00] VITALS: BP_SYST 146; BP_SYST 162; BP_SYST 170; BP_DIAS 60; BP_DIAS 64; BP_DIAS 70
[2016-12-02] MEDS: LEVOTHYROXINE 50MCG TABLET (0.05MG) PO SCH (05:07)
[2016-12-02 05:33] LABS: MEAN CORPUSCULAR HEMOGLOBIN 28.6 pg (27.0-33.0); MEAN CORPUSCULAR HGB CONC 33.1 g/dl (32.0-36.5); MEAN CORPUSCULAR VOLUME 86.4 fl (80.0-96.0); RED CELL DISTRIBUTION WIDTH 14.3 % (11.5-14.5); WHITE BLOOD COUNT 9.1 10^3/uL (4.0-10.0)
[2016-12-02] MEDS: SLF 3 ML SYR IV SCH ×3 (05:51→20:50)
[2016-12-02 05:58] LABS: CALCIUM LEVEL 9.1 MG/DL (8.8-10.2); CREATININE FOR GFR 1.24 MG/DL (0.70-1.30); GLOMERULAR FILTRATION RATE 58.6 (>35); POTASSIUM SERUM 3.5 MEQ/L (3.5-5.1)
[2016-12-02 08:00] VITALS: BP 154/68
[2016-12-02] MEDS: HEPARIN SOD (PORCINE) 5000 UNITS/ML VIAL SQ SCH ×2 (09:34→20:49)
[2016-12-02] MEDS: ESCITALOPRAM OXALATE 10 MG TAB (LEXAPRO) PO SCH (09:34)
[2016-12-02] MEDS: LACTOBACILLUS ACIDOPHILUS CAP (BACID) PO SCH ×2 (09:35→20:48)
[2016-12-02] MEDS: MULTIVITAMINS/MINERALS THERAP 1 TAB PO SCH (09:35)
[2016-12-02] MEDS: ISOSORBIDE DIN. (ISORDIL) 30 MG TAB PO SCH (09:35)
[2016-12-02] MEDS: CYANOCOBALAMIN 500 MCG TAB PO SCH (09:35)
[2016-12-02] MEDS: ASPIRIN 81 MG ENTERIC TAB PO SCH (09:35)
[2016-12-02] MEDS: SENNA 8.6 MG TAB (SENOKOT) PO SCH (09:35)
[2016-12-02] MEDS: LOSARTAN 50 MG TAB PO SCH (09:35)
[2016-12-02] MEDS: BACTRIM 160MG/800MG DS TAB PO SCH ×2 (10:12→20:47)
[2016-12-02 11:36] VITALS: BP 111/53
[2016-12-02 12:00] VITALS: BP_SYST 110; BP_SYST 120; BP_SYST 99; BP_DIAS 56; BP_DIAS 57
[2016-12-02] MEDS ORDERED: SULF1TAB23 PO (13:30)
--- NOTE | 2016-12-02 13:43 | DS.PDOC ---
Discharge Summary General Date of Admission Nov 30, 2016 at 13:43 Date of Discharge Dec 03, 2016 Primary Care Physician: Gosia Andino Discharge Summary Procedures performed during stay: [none]. Admitting diagnoses: 1. Episode of weakness with possible facial droop Discharge diagnoses: 1. Left sided facial droop likely due to stenosis of the left carotid artery. 2. UTI Complications/chief complaint: dizziness. History of present illness: the patient is an 86-year-old man who resides at the [facility] who was eating breakfast this morning at approximately 9 a.m. When he began to feel dizzy and weak. He reportedly had a left facial droop with drooling on the left side of his face. He did not have any loss of consciousness. He does not remember much more of the event. He denies any other associated symptoms. He denies loss of consciousness, nausea, vomiting, chest pressure, shortness of breath, diarrhea. He has chronic neurogenic bladder, which is straight catheterized. Otherwise , he has been in his usual state of health. He tells me that he has had episodes like this in the past but could never what the etiology was determined to be. At the present time, he feels "pretty much back to normal". Hospital course: The patient was examined in the ER and admitted to [facility] for her to be placed on property assessment monitor. We did an MRI and MRA of the brain without contrast which was negative for any intracranial lesions. Patient had a carotid ultrasound which showed 50-69% stenosis of the left carotid artery. Lipid panel showed an elevated triglyceride of 403. A1c was 6.3. Troponin has been consistently negative at 0.2 x3. The patient has been sinus rhythm since being on the floor with no episode of bradycardia. Since his donepezil was held. He has had neuro checks every 4 hours. Urine culture came back positive for Enterobacter Cloacae sensitive to TPM SMX starting this for twice a day for 14 days. First dose given on the morning of 12/02/16. Patient was evaluated by OT and PT, who stated the patient is cleared to be discharged to his assisted living. Discharge medications: please see below. Allergies: please see below. Physical examination on discharge: Vital signs: please see below. General exam: positive: alert Eye exam: positive: perrla, conjunctiva & lids normal Neck exam: negative: supple, jvd Chest exam: positive: clear to auscultation Heart exam: positive: rate normal, regular rhythm, normal s1, normal s2 Telemetry: positive: sinus Abdomen exam: positive: normal bowel sounds, soft, negative: tenderness Neuro exam: positive: strength at 5/5 x4 ext, sensation intact, other (left side lip droop ) Psych exam: positive: mental status nl, oriented x 3 Laboratory data: please see below. Imagin11/30/2016 ekg Sinus bradycardia with short pr interval Probable inferior myocardial infarction, probably old Nsttw abnormality Similar 11/10/16 11/30/[address] Impression: No acute disease or significant change from 08/12/2016 with findings as described Above. 11/30/2016 chest x-ray Impression: Stable appearing chronic changes and technique as described above. 11/30/2016 brain mri without contrast Impression: no evidence of acute infarct or hemorrhage. Mild chronic small vessel ischemic disease. 11/30/2016 brain mra contrast Impression: unremarkable mra examination of the brain. 11/30/2016 carotid vascular ultrasound Impression: According to the nascet consensus criteria, there is a 50-69% stenosis of the Left internal carotid artery. Activity: as tolerated. Diet: Consistent carbs low sodium Discharge plan: 1. Left sided facial droop likely due to stenosis of the left carotid artery. CT and MRI/MRA were negative for infract or hemorrhage. Patient had a carotid ultrasound which showed 50-69% stenosis of the left carotid artery. Lipid panel showed an elevated triglyceride of 403. A1c was 6.3. Troponin has been consistently negative at 0.2 x3. He has been in sinus rhythm since being on the floor. Well continue to hold the donepezil on discharge, because of bradycardic event on admission which might be likely cause of his lightheadedness and dizziness. He has been oriented 3 on the floor since being off of the donepezil. 2. UTI-Abnormal UA and Patients urine culture came back positive for Enterobacter Cloacae was sensitive to TPM SMX starting this for twice a day for 14 days. Patient was given 1 gram of Rocephin in the ER. 3. Colon cancer, status post resection and chemotherapy. This is reportedly in remission. He is to follow-up with oncology at next scheduled appointment. 4. Hypothyroidism: TSH was elevated at 4.20 and T4 is good at 0.87. Continue with Synthroid. 5. Dyslipidemia: Continue with home ASA and statin 6. Coronary artery disease. Continue with ASA, statin and Isordil. 7. Hypertension. He is to continue on home medications of losartan, amlodipine and Isordil. 8. Anxiety: continue on Xanax and Lexapro. 9. Dementia: Continue holding the patient Aricept on discharge, due to bradycardia on admission. Heart rate is 60s since being on the floor. 10. Neurogenic bladder: The patient' self-catheterizes as needed at [facility] continue on discharge 11. Benign prostatic hypertrophy (BPH): Continue with Flomax. 12. B12 deficiency: Continue with supplementation 13. Chronic constipation: Will continue with bowel regimen: Miralx and Senokot. Discharge instructions: 1. F/U with Primary care in 3-7 days 2. Stop taking donepezil 3. Complete TMP/SMX for UTI infection for 14 days. Items to follow-up on outpatient: 1. F/U with Primary care in 3-7 days 2. Stop taking donepezil 3. Complete TMP/SMX for UTI infection for 14 days. Discharge condition: stable. Time spent on discharge: greater than 60 minutes. Vital Signs/I&Os Vital Signs Date Time Temp Pulse Resp B/P (MAP) Pulse Ox O2 Delivery O2 Flow Rate FiO2 12/02/16 12:00 74 110/57 (74) 70 99/57 (71) 60 120/56 (77) 12/02/16 11:36 97.8 18 95 Room Air 11/30/16 10:45 2.0 I&O- Last 24 Hours up to 6 AM 12/03/16 06:00 Intake Total 360 ml Balance 360 ml Laboratory Data Labs 24H Laboratory Tests 2 12/02/16 05:16: Anion Gap 8, Glomerular Filtration Rate 58.6, Blood Urea Nitrogen 25H, Creatinine 1.24, Sodium Level 140, Potassium Level 3.5, Chloride Level 107, Carbon Dioxide Level 25, Calcium Level 9.1 CBC/BMP Laboratory Tests 12/02/16 05:16 Red Blood Count 4.20 L, Mean Corpuscular Volume 86.4, Mean Corpuscular Hemoglobin 28.6, Mean Corpuscular Hemoglobin Concent 33.1, Red Cell Distribution Width 14.3, Calcium Level 9.1 Microbiology Microbiology 11/30/16 Blood Culture - Preliminary, Resulted No growth after 24 hours . All specim... 11/30/16 Blood Culture - Preliminary, Resulted No growth after 24 hours . All specim... 11/30/16 Urine Culture - Preliminary, Resulted Enterobacter Cloacae Complex Discharge Medications Scheduled Amlodipine Besylate (Amlodipine Besylate) 5 Mg Tab, 5 MG PO QPM, (Reported) Aspirin (Aspirin 81) 81 Mg Tab, 81 MG PO DAILY, (Reported) Cholecalciferol (Vitamin D3) 5,000 Unit Tab, 5,000 UNIT PO DAILY, (Reported) Cyanocobalamin (Vitamin B12) 500 Mcg Tab, 1,000 MCG PO DAILY, (Reported) Escitalopram Oxalate (Lexapro) 20 Mg Tab, 20 MG PO DAILY, (Reported) Fenofibrate (Fenofibrate) 120 Mg Tab, 120 MG PO Q2D, (Reported) Isosorbide Dinitrate (Isosorbide Dinitrate) 30 Mg Tab, 30 MG PO DAILY, (Reported ) Lactobacillus Acidophilus (Bacid) 1 Tab Tab, 2 TAB PO BID, (Reported) Levothyroxine Sodium (Synthroid) 50 Mcg Tab, 50 MCG PO DAILY, (Reported) Losartan Potassium (Losartan Potassium) 50 Mg Tab, 50 MG PO DAILY, (Reported) Multivitamins *[facility] STOCKED* (Thera M Plus *[facility] STOCKED*) 1 Tab Tab, 1 TAB PO DAILY, (Reported) Senna (Senna Lax) 8.6 Mg Tab, 1 TAB PO DAILY, (Reported) Simvastatin (Simvastatin) 20 Mg Tab, 20 MG PO QHS, (Reported) Tamsulosin Hydrochloride (Flomax) 0.4 Mg Cap, 0.4 MG PO QPM, (Reported) Trimethoprim/Sulfamethoxazole (Smz-Tmp Ds 800-160 mg) 1 Tab Tab, 1 TAB PO BID Scheduled PRN (Maalox Max 400-400-40 mg/5Ml) 1 Skyla Skyla, 15 ML PO TID PRN for INDIGESTION, ( Reported) Acetaminophen (Acetaminophen) 325 Mg Tab, 650 MG PO Q4H PRN for PAIN, (Reported) Alprazolam (Xanax) 0.5 Mg Tab, 0.5 MG PO BID PRN for ANXIETY, (Reported) Polyethylene Glycol (Miralax) 1 Pow Pow, 17 GM PO DAILY PRN for CONSTIPATION, ( Reported) Allergies Coded Allergies: No Known Drug Allergy (Verified Allergy, Unknown, 07/14/16) GME ATTESTATION GME ATTESTATION My preceptor for this patient encounter was physically present in the building during the encounter and was fully available. As needed, all aspects of the patient interview, examination, medical decision making process, and medical care plan development were reviewed and approved by the preceptor. Preceptor is aware and concurs with the plan as stated in the body of this note and will attest to such by his/her cosignature. ATTENDING NOTE Due to transportation issues, the patient will be transferred to [facility] tomorrow morning. MANDEEP RODGERS,DO Dec 02, 2016 13:43 JULISA LUKE DO Dec 03, 2016 11:12
[2016-12-02 16:14] VITALS: BP 150/62
[2016-12-02] MEDS: TAMSULOSIN 0.4 MG CAP PO SCH (20:47)
[2016-12-02] MEDS: SIMVASTATIN 20 MG TAB PO SCH (20:48)
[2016-12-02] MEDS: amLODIPine 5 MG TAB PO SCH (20:48)
[2016-12-02 22:00] VITALS: BP 152/60
[2016-12-03 00:30] VITALS: BP 116/62
[2016-12-03] MEDS: LEVOTHYROXINE 50MCG TABLET (0.05MG) PO SCH (05:41)
[2016-12-03] MEDS: SLF 3 ML SYR IV SCH (05:42)
[2016-12-03 06:00] VITALS: BP 154/74
[2016-12-03 07:18] LABS: MEAN CORPUSCULAR HEMOGLOBIN 28.7 pg (27.0-33.0); MEAN CORPUSCULAR HGB CONC 33.5 g/dl (32.0-36.5); MEAN CORPUSCULAR VOLUME 85.5 fl (80.0-96.0); RED CELL DISTRIBUTION WIDTH 14.3 % (11.5-14.5)
[2016-12-03 07:40] LABS: CALCIUM LEVEL 9.8 MG/DL (8.8-10.2); CREATININE FOR GFR 1.5 MG/DL (0.70-1.30); POTASSIUM SERUM 3.7 MEQ/L (3.5-5.1)
[2016-12-03] MEDS: ASPIRIN 81 MG ENTERIC TAB PO SCH (08:52)
[2016-12-03] MEDS: HEPARIN SOD (PORCINE) 5000 UNITS/ML VIAL SQ SCH (08:52)
[2016-12-03] MEDS: LACTOBACILLUS ACIDOPHILUS CAP (BACID) PO SCH (08:52)
[2016-12-03] MEDS: SENNA 8.6 MG TAB (SENOKOT) PO SCH (08:52)
[2016-12-03] MEDS: CYANOCOBALAMIN 500 MCG TAB PO SCH (08:53)
[2016-12-03] MEDS: BACTRIM 160MG/800MG DS TAB PO SCH (08:53)
[2016-12-03] MEDS: ESCITALOPRAM OXALATE 10 MG TAB (LEXAPRO) PO SCH (08:53)
[2016-12-03 08:59] VITALS: BP 160/72
[2016-12-03] MEDS: MULTIVITAMINS/MINERALS THERAP 1 TAB PO SCH (08:59)
[2016-12-03] MEDS: LOSARTAN 50 MG TAB PO SCH (08:59)
[2016-12-03] MEDS: ISOSORBIDE DIN. (ISORDIL) 30 MG TAB PO SCH (09:00)
--- NOTE | 2016-12-03 11:18 | IPNPDOC ---
Date Seen The patient was seen on 12/02/16. Progress Note SUBJECTIVE: Patient is a 86 yo male. seen at bedside without c/o CP, SOB, N/V/ D. Tolerating PO intake. OBJECTIVE PHYSICAL EXAMINATION: VITAL SIGNS: Please see below. GENERAL: NAD, AXO times 3 HEENT: PERRLA, THROAT CLEAR, NECK SUPPLE CARDIOVASCULAR: RRR. RESPIRATORY: CTA bilaterally. ABDOMINAL: soft, NT/ND, normoactive bowel sounds EXTREMITIES: no edema no calf tenderness NEUROLOGICAL: CN II through XII grossly intact and no gross deficits PSYCHOLOGICAL: negative LABORATORY DATA: Please see below. DVT prophylaxis ordered?: yes ASSESSMENT AND PLAN: This is a 86yo male with doing well and anticipate d/c tomorrow. PROBLEMS: 1. Left sided facial droop due to likely TIA- CT and MRI/MRA were negative for infract or hemorrhage. Patient had a carotid ultrasound which showed 50-69% stenosis of the left carotid artery. Lipid panel showed an elevated triglyceride of 403. A1c was 6.3. Troponin has been consistently negative at 0.2 x3, and will continue telemetry. The patient has been sinus rhythm since being on the floor. PT/OT has now cleared him for discharge. 2. Colon cancer, status post resection and chemotherapy. This is reportedly in remission. 3. Hypothyroidism: TSH was elevated at 4.20 and T4 is good at 0.87. Continue with Synthroid. 4. Dyslipidemia: Continue with home ASA and statin 5. Coronary artery disease. Continue with ASA, statin and Isordil. 6. Hypertension (resolving) BP this morning was 122/79. Will continue on home medications of losartan, amlodipine and Isordil. Will continue to monitor with vital checks every q4h. 7. Anxiety: continue on Xanax and Lexapro. 8. Dementia: Continue holding the patient Aricept, due to bradycardia on admission. Heart rate is 60s since being on the floor. Will continue with neuro checks q4h. 9. Neurogenic bladder: The patient' self catheterizes as needed at [facility]. Continue wth twice a day while on the floor. 10. Benign prostatic hypertrophy (BPH): Continue with Flomax. 11. B12 deficiency: Continue with supplementation 12. Chronic constipation: Will continue with bowel regimen: Miralx and Senokot. 13. Abnormal UA: Neurogenic bladder. Self Catheterizes BID. Afebrile since admission and no leukocytosis. Physical exam patient denies any lower abdominal pain or cramping. Patient was given Rocephin in the ER. Urine and blood cultures are currently pending. Unlikely the patient has an UTI, will not be treating empirically as of this time. Suspicious for an infectious cause is low. 14. Deep venous thrombosis prophylaxis: The patient will be on heparin. 15. DISPO: anticipate discharge early tomorrow morning to [facility]. VS, I&O, 24H, Fishbone Vital Signs/I&O Vital Signs Date Time Temp Pulse Resp B/P (MAP) Pulse Ox O2 Delivery O2 Flow Rate FiO2 12/03/16 09:00 Room Air 12/03/16 08:59 160/72 12/03/16 06:00 97.7 58 18 93 11/30/16 10:45 2.0 Laboratory Data 24H LABS Laboratory Tests 2 12/03/16 06:58: Anion Gap 8, Glomerular Filtration Rate 47.0, Blood Urea Nitrogen 31H, Creatinine 1.50H, Sodium Level 141, Potassium Level 3.7, Chloride Level 108H, Carbon Dioxide Level 25, Calcium Level 9.8 CBC/BMP Laboratory Tests 12/03/16 06:58 Red Blood Count 4.22 L, Mean Corpuscular Volume 85.5, Mean Corpuscular Hemoglobin 28.7, Mean Corpuscular Hemoglobin Concent 33.5, Red Cell Distribution Width 14.3, Calcium Level 9.8 Microbiology Microbiology 11/30/16 Blood Culture - Preliminary, Resulted No Growth after 48 hours. All Specime... 11/30/16 Blood Culture - Preliminary, Resulted No Growth after 48 hours. All Specime... 11/30/16 Urine Culture - Final, Complete Enterobacter Cloacae Complex Aerococcus Urinae JULISA LUKE DO Dec 03, 2016 11:18
[2016-12-03] MEDS ORDERED: INFLUENZA VIRUS VACCINE HIGH DOSE 0.5 ML SYRINGE (90662) IM ONE (12:00)
[2016-12-27] MEDS ORDERED: BUSP5TA PO (20:26)
== END 2016-12-03 12:45 | DRG 68 ==
LOC: EDBD 10:28 → M ED 10:28 → M ED INP 13:43 → M PCU 15:19 → M MSPAV 12-02 15:51
PROVIDERS: ADMIT Internal Medicine; ATTEND Hospitalist
DX: I65.22 Occlusion and stenosis of left carotid artery (principal); N39.0 Urinary tract infection, site not specified; N31.9 Neuromuscular dysfunction of bladder, unspecified; E03.9 Hypothyroidism, unspecified; E78.5 Hyperlipidemia, unspecified; I25.10 Atherosclerotic heart disease of native coronary artery without angina pectoris; N40.0 Benign prostatic hyperplasia without lower urinary tract symptoms; D50.9 Iron deficiency anemia, unspecified; F32.9 Major depressive disorder, single episode, unspecified; F41.9 Anxiety disorder, unspecified; B96.89 Other specified bacterial agents as the cause of diseases classified elsewhere; I10 Essential (primary) hypertension; F03.90 Unspecified dementia, unspecified severity, without behavioral disturbance, psychotic disturbance, mood disturbance, and anxiety; R26.81 Unsteadiness on feet; H35.30 Unspecified macular degeneration; R29.810 Facial weakness; R00.1 Bradycardia, unspecified; G47.33 Obstructive sleep apnea (adult) (pediatric); K59.00 Constipation, unspecified; E53.8 Deficiency of other specified B group vitamins; Z95.1 Presence of aortocoronary bypass graft; Z90.49 Acquired absence of other specified parts of digestive tract; Z85.038 Personal history of other malignant neoplasm of large intestine; Z92.21 Personal history of antineoplastic chemotherapy; Z87.891 Personal history of nicotine dependence; Z79.82 Long term (current) use of aspirin; Z79.899 Other long term (current) drug therapy

== ENCOUNTER → 2017-01-21 | Outpatient (REF) | payer MEDICARE, OTHER ==
[~2017-01-21] MED LIST changes: +BUSP5TA PO; +SULF1TAB23 PO
== END ==
LOC: M SMT 14:19
PROVIDERS: ATTEND Urology
DX: N31.2 Flaccid neuropathic bladder, not elsewhere classified (principal)

== ENCOUNTER → 2017-01-26 | Outpatient (REF) | payer MEDICARE, OTHER | LOC: M LAB REF 17:06 | PROVIDERS: ATTEND Urology | DX: N39.0 Urinary tract infection, site not specified (principal) ==

== ENCOUNTER → 2017-05-22 | Outpatient (REF) | payer MEDICARE, OTHER ==
[2017-05-22 12:55] LABS: APPEARANCE, URINE CLEAR (CLEAR); BACTERIA, URINE AUTO NEGATIVE (NEGATIVE); BILIRUBIN, URINE AUTO NEGATIVE (NEGATIVE); BLOOD, URINE BLOOD NEGATIVE (NEGATIVE); COLOR, URINE YELLOW (YELLOW); GLUCOSE, URINE (UA) AUTO NEGATIVE (NEGATIVE); KETONE, URINE AUTO NEGATIVE (NEGATIVE); LEUKOCYTE ESTERASE, URINE AUTO NEGATIVE (NEGATIVE); NITRITE, URINE AUTO NEGATIVE (NEGATIVE); PROTEIN, URINE AUTO 2+ mg/dL (NEGATIVE); RBC, URINE AUTO 1 /HPF (0-3); SPECIFIC GRAVITY URINE AUTO 1.008 (1.002-1.035); SQUAMOUS EPITHELIAL CELL UR AU 0 /HPF (0-6); UROBILINOGEN, URINE AUTO 0.2 mg/dL (0.0-2.0); WBC, URINE AUTO 9 /HPF (0-3)
== END ==
DX: N31.9 Neuromuscular dysfunction of bladder, unspecified (principal); Z79.899 Other long term (current) drug therapy
CPT/HCPCS: 81001

== ENCOUNTER 2017-08-28 18:32 | Emergency (ER) | payer MEDICARE, OTHER ==
[2017-08-28 20:56] LABS: ANION GAP 8 MEQ/L (8-16); BLOOD UREA NITROGEN 27 MG/DL (7-18); C REACTIVE PROTEIN QUANTITATIV < 0.30 MG/DL (0.00-0.30); CARBON DIOXIDE LEVEL 24 MEQ/L (21-32); CHLORIDE LEVEL 104 MEQ/L (98-107); CREATININE FOR GFR 1.35 MG/DL (0.70-1.30); GLOMERULAR FILTRATION RATE 53.1 (>35); GLUCOSE, FASTING 137 MG/DL (70-100); POTASSIUM SERUM 5.1 MEQ/L (3.5-5.1); SODIUM LEVEL 136 MEQ/L (136-145)
[2017-08-28 20:56] LABS: LACTIC ACID SEPSIS PROTOCOL 1.5 MMOL/L (0.4-2.0)
[2017-08-28 21:05] LABS: BASO % 0.5 % (0.0-1.0); EOS # 0.3 10^3/uL (0.0-0.50); EOS % 4.1 % (0.0-3.0); HEMOGLOBIN 13.6 g/dl (13.5-17.5); IMMATURE GRANULOCYTE % 0.7 % (0-3.0); LYMPH # 0.9 10^3/uL (1.5-4.5); LYMPH % 15.5 % (24.0-44.0); MEAN CORPUSCULAR HEMOGLOBIN 29.8 pg (27.0-33.0); MEAN CORPUSCULAR VOLUME 87.7 fl (80.0-96.0); MONO # 0.6 10^3/uL (0.0-0.8); MONO % 9.4 % (0.0-5.0); NEUTROPHILS # 4.2 10^3/uL (1.8-7.7); NEUTROPHILS % 69.8 % (36.0-66.0); PLATELET COUNT, AUTOMATED 248 10^3/uL (150-450); RED BLOOD COUNT 4.56 10^6/uL (4.30-6.10); RED CELL DISTRIBUTION WIDTH 13.7 % (11.5-14.5); WHITE BLOOD COUNT 6.1 10^3/uL (4.0-10.0)
[2017-08-28 21:16] LABS: INR 1.06; PROTHROMBIN TIME 13.9 SECONDS (12.1-14.4)
[2017-08-28 21:17] LABS: PARTIAL THROMBOPLASTIN TIME 25.3 SECONDS (25.4-37.6)
[2017-08-28 21:37] LABS: ERYTHROCYTE SEDIMENTATION RATE 5 mm/hr (0-30)
[2017-08-28] MEDS: CLINDAMYCIN 150 MG CAP PO (22:43)
== END 2017-08-28 22:58 | disposition home or self-care (01) ==
LOC: M ED 18:32
DX: L03.113 Cellulitis of right upper limb (principal); I10 Essential (primary) hypertension; M79.89 Other specified soft tissue disorders; I25.2 Old myocardial infarction; E03.9 Hypothyroidism, unspecified; N40.0 Benign prostatic hyperplasia without lower urinary tract symptoms; H35.30 Unspecified macular degeneration; F41.9 Anxiety disorder, unspecified; E55.9 Vitamin D deficiency, unspecified; N28.9 Disorder of kidney and ureter, unspecified; Z86.73 Personal history of transient ischemic attack (TIA), and cerebral infarction without residual deficits; Z79.899 Other long term (current) drug therapy; Z79.82 Long term (current) use of aspirin; Z79.2 Long term (current) use of antibiotics
CPT/HCPCS: 93971

== ENCOUNTER → 2017-11-24 | Outpatient (REF) | payer MEDICARE, OTHER ==
[2017-11-24 19:03] LABS: APPEARANCE, URINE HAZY (CLEAR); BACTERIA, URINE AUTO NEGATIVE (NEGATIVE); BILIRUBIN, URINE AUTO NEGATIVE (NEGATIVE); BLOOD, URINE BLOOD NEGATIVE (NEGATIVE); COLOR, URINE YELLOW (YELLOW); GLUCOSE, URINE (UA) AUTO NEGATIVE (NEGATIVE); KETONE, URINE AUTO NEGATIVE (NEGATIVE); LEUKOCYTE ESTERASE, URINE AUTO TRACE (NEGATIVE); NITRITE, URINE AUTO NEGATIVE (NEGATIVE); PROTEIN, URINE AUTO 2+ mg/dL (NEGATIVE); RBC, URINE AUTO 7 /HPF (0-3); SPECIFIC GRAVITY URINE AUTO 1.011 (1.002-1.035); SQUAMOUS EPITHELIAL CELL UR AU 0 /HPF (0-6); UROBILINOGEN, URINE AUTO 0.2 mg/dL (0.0-2.0); WBC, URINE AUTO 5 /HPF (0-3)
== END ==
DX: N31.9 Neuromuscular dysfunction of bladder, unspecified (principal); Z79.899 Other long term (current) drug therapy
CPT/HCPCS: 81001

== ENCOUNTER → 2018-02-10 | Outpatient (REF) | payer MEDICARE, OTHER ==
[~2018-02-10] MED LIST changes: -ACET1TAB17 PO; +ACET1TAB55 PO; -AMLO5TAB2 PO; +AMLO5TAB4 PO; -FENO145T PO; +FENO145T13 PO; +FLOM0.4C39 PO; -FLOM5CAP PO; -LEVA1TAB PO; +LEVA250T13 PO; -LOSA50TA20 PO; +LOSA50TA73 PO; +MILK12002 PO; -MILKSUS PO; -SULF1TAB23 PO; +SULF1TAB93 PO
== END ==
PROVIDERS: ATTEND Nurse Practitioner Adult Health
DX: E03.9 Hypothyroidism, unspecified (principal)